=== PATIENT | female | born 1955 | race Two or more races ===

== ENCOUNTER 2017-12-29 11:50 | Inpatient (IN) | payer OTHER ==
[2017-12-29] MEDS ORDERED: Morphine VIAL* 10 MG/ML 1 ML VIAL IV ONE (18:53)
--- NOTE | 2017-12-29 18:53 | ED ---
Back Pain - HPI Summary HPI Summary: 62-year-old female presents with back pain for the past month. She dropped a bag a sugar on her back a couple months ago. She had a x-rays in [facility] and they were not significant for anything the family believes. She had CT done this week at her primary as she's been gradually not been able to walk and her primary told her to come here. She denies any saddle anesthesia. No loss of bowel or bladder. She's been using a walker to get around because of weakness in her left leg. She has pain in her left leg to the entire leg. She is diabetic. the son is translating. with discussion with family patient has been falling alot at home. she gets occasionally numbness of leg. - History of Current Complaint Chief Complaint: EDBackInjuryPain Time Seen by Provider: 12/29/17 18:44 Pain Intensity: 10 - Allergies/Home Medications Allergies/Adverse Reactions: Allergies Allergy/AdvReac Type Severity Reaction Status Date / Time No Known Allergies Allergy Verified 10/24/12 08:20 Home Medications: Home Medications Atorvastatin* [Lipitor*] 10 mg PO 1700 12/29/17 [History Confirmed 12/29/17] Insulin Detemir (NF) [Levemir (NF)] 68 unit SUBCUT BEDTIME 12/29/17 [History Confirmed 12/29/17] Insulin Detemir [Levemir Flextouch] 80 units SUBCUT QAM 12/29/17 [History Confirmed 12/29/17] Lisinopril TAB* [Prinivil TAB*] 5 mg PO DAILY 12/29/17 [History Confirmed ] traMADol TAB* [Ultram*] 50 mg PO Q8H PRN 12/29/17 [History Confirmed 12/29/17] PMH/Surg Hx/FS Hx/Imm Hx Endocrine/Hematology History: Reports: Hx Diabetes Denies: Hx Sickle Cell Disease Cardiovascular History: Denies: Other Cardiovascular Problems/Disorders Respiratory History: Denies: Other Respiratory Problems/Disorders GI History: Denies: Other GI Disorders History: Denies: Other Problems/Disorders Musculoskeletal History: Denies: Other Musculoskeletal History Sensory History: Reports: Hx Cataracts - LEFT EYE, Hx Contacts or Glasses - GLASSES Denies: Hx Hearing Aid Opthamlomology History: Reports: Hx Cataracts - LEFT EYE, Hx Contacts or Glasses - GLASSES Neurological History: Denies: Other Neuro Impairments/Disorders - Cancer History Hx Chemotherapy: No - Surgical History Hx Anesthesia Reactions: No Infectious Disease History: No Infectious Disease History: Denies: Traveled Outside the [place] in Last 30 Days - Family History Known Family History: Positive: Hypertension - Social History Substance Use Type: Reports: None Review of Systems Negative: Chest Pain Negative: Shortness Of Breath Positive: Myalgia - back pain, left leg pain All Other Systems Reviewed And Are Negative: Yes Physical Exam Triage Information Reviewed: Yes Vital Signs On Initial Exam: Initial Vitals Temp Pulse Resp BP Pulse Ox 97.8 F 71 16 158/77 96 12/29/17 12:25 12/29/17 12:25 12/29/17 12:25 12/29/17 12:25 12/29/17 12:25 Vital Signs Reviewed: Yes Appearance: Positive: Well-Appearing Skin: Positive: Warm, Dry Head/Face: Positive: Normal Head/Face Inspection Eyes: Positive: Normal, Conjunctiva Clear ENT: Positive: Pharynx normal Respiratory/Lung Sounds: Positive: Clear to Auscultation, Breath Sounds Present Cardiovascular: Positive: Normal, RRR Abdomen Description: Positive: Nontender, Soft Bowel Sounds: Positive: Present Musculoskeletal: Positive: Limited @ - back, Other - positive left leg, good pulses, Neurological: Positive: Normal, Babinski Left - normal Psychiatric: Positive: Normal Diagnostics - Vital Signs Vital Signs Temp Pulse Resp BP Pulse Ox 12/29/17 17:16 97.1 F 68 20 148/76 100 12/29/17 12:25 97.8 F 71 16 158/77 96 - Laboratory Result Diagrams: 12/29/17 19:23 12/29/17 19:25 Lab Statement: Any lab studies that have been ordered have been reviewed, and results considered in the medical decision making process. - Additional Comments Diagnostic Additional Comments: IMPRESSION: 1. Severe compression deformity of L1 with approximately 50% loss of height anteriorly. Retropulsion causes moderate canal narrowing with associated cord compression and central myelopathic cord signal abnormality, concerning for traumatic cord edema. 2. STIR hyperintensity inferiorly at T12 suggests acute fracture without significant loss of height. 3. Subtle STIR hyperintensity along the superior endplate of L2, which also could suggest acute fracture. Re-Evaluation - Re-Evaluation First Eval Re-Evaluation Time: :50 Comment: discussed results with patient and family Back Pain Course/Dx - Course Course Of Treatment: 62-year-old female presents with back pain for the past month. She dropped a bag a sugar on her back a couple months ago. She had a x- rays in [facility] and they were not significant for anything the family believes. She CT done this week at her primary as she's been gradually not been able to walk and her primary told her to come here. She denies any saddle anesthesia. No loss of bowel or bladder. She's been using a walker to get around because of weakness in her left leg. She has pain in her left leg to the entire leg. She is diabetic. the son is translating. on exam has tenderness lower back, pos SLR, babinski neg. CT shows compression fracture. dr maya will see in ED. discussed case with [employer]ATOR. CT shows compression fracture L1. MRI shows L1 fracture with associated cord compression. told results to dr maya who states to make patient npo and will discuss options with family. - Diagnoses Differential Diagnosis/HQI/PQRI: Positive: Fracture, Herniated Disc, Sprain Provider Diagnoses: Compression fracture of L1 lumbar vertebra Discharge - Sign-Out/Discharge Documenting (check all that apply): Patient Departure - Discharge Plan Condition: Stable Disposition: ADMITTED TO [facility] - Billing Disposition and Condition Condition: STABLE Disposition: Admitted to [facility]
[2017-12-29 19:34] LABS: ABS Basophils 0.1 10^3/ul (0-0.2); ABS Eosinophils 0.1 10^3/ul (0-0.6); ABS Lymphocytes 3.1 10^3/ul (1.0-4.8); ABS Monocytes 0.5 10^3/ul (0-0.8); ABS Neutrophils 4.8 10^3/ul (1.5-7.7); ABS Nucleated RBC 0 10^3/ul; Eosinophil % 0.9 % (0-6); Hematocrit 39 % (35-47); Hemoglobin 12.8 g/dl (12.0-16.0); Lymphocyte % 36.4 % (25-47); Mean Corpuscular HGB Conc 33 g/dl (31-36); Mean Corpuscular Hemoglobin 26 pg (27-31); Mean Corpuscular Volume 78 fL (80-97); Mean Platelet Volume 8.8 um3 (7.4-10.4); Nucleated Red Blood Cells % 0.2; Platelet Count 263 10^3/ul (150-450); Red Blood Count 4.95 10^6/ul (4.00-5.40); Red Cell Distribution Width 15 % (10.5-15); White Blood Count 8.5 10^3/ul (3.5-10.8)
[2017-12-29 19:51] LABS: EGFR Non-African American 110.1 (>60)
[2017-12-29] MEDS ORDERED: Ondansetron INJ* 2 MG/ML VIAL IV ONE (20:17)
[2017-12-29] MEDS ORDERED: Ondansetron INJ* 2 MG/ML VIAL ONE (20:18)
--- NOTE | 2017-12-29 20:35 | RAD ---
EXAM: CT Lumbar Spine Without Intravenous Contrast CLINICAL HISTORY: 62 years old, female; Pain; Hip pain; Right hip; Additional info: Right hip pain TECHNIQUE: Axial computed tomography images of the lumbar spine without intravenous contrast. All CT scans at this facility use at least one of these dose optimization techniques: automated exposure control; mA and/or kV adjustment per patient size (includes targeted exams where dose is matched to clinical indication); or iterative reconstruction. COMPARISON: No relevant prior studies available. FINDINGS: Vertebrae: Acute severe compression deformity of L1 with retropulsion causing approximately 30% osseous canal narrowing. There is approximately 50% loss of height of L1. Remaining lumbar vertebral body heights are intact. Multilevel facet arthropathy. No measurable spondylolisthesis. Discs/spinal canal/neural foramina: Disc height loss and desiccation at T12-L1 and L1-L2. Soft tissues: Unremarkable. In IMPRESSION: Acute severe compression deformity of L1 with 50% loss of height and retropulsion causing approximately 30% osseous canal narrowing.
--- NOTE | 2017-12-29 20:37 | RAD ---
EXAM: CT Pelvis Without Intravenous Contrast CLINICAL HISTORY: 62 years old, female; Pain; Low back pain; Patient HX: Trauma several months ago. 100 lb bag fell onto pt. TECHNIQUE: Axial computed tomography images of the pelvis without intravenous contrast. All CT scans at this facility use at least one of these dose optimization techniques: automated exposure control; mA and/or kV adjustment per patient size (includes targeted exams where dose is matched to clinical indication); or iterative reconstruction. COMPARISON: No relevant prior studies available. FINDINGS: Bowel: Unremarkable. No obstruction. No mucosal thickening. Intraperitoneal space: Unremarkable. No free air. No significant fluid collection. Bladder: Unremarkable. No stones. Reproductive: Unremarkable as visualized. Bones/joints: No acute fracture. No dislocation. Soft tissues: Unremarkable. Vasculature: Mild calcifications of the right iliac artery. No lower abdominal aortic aneurysm. Lymph nodes: Unremarkable. No enlarged lymph nodes. IMPRESSION: No acute findings.
[2017-12-29] MEDS ORDERED: Ondansetron INJ* 2 MG/ML VIAL IV PRN (22:07)
[2017-12-29] MEDS ORDERED: Dextrose 50% Syringe 50 ML* 25 GM/50 ML SYRINGE IV PUSH PRN (22:07)
[2017-12-29] MEDS ORDERED: Potassium Chlor TAB* 20 MEQ TAB.ER PO ONE (22:25)
--- NOTE | 2017-12-29 22:50 | RAD ---
EXAM: MR Lumbar Spine Without Intravenous Contrast CLINICAL HISTORY: 62 years old, female; Injury or trauma; Injury 100 lb bag of sugar fell on pt; Late effect from previous injury; Fracture, traumatic injury; Not specified; First lumbar vertebra; Injury date: September 2017; Patient HX: Continued low back pain and left leg weakness; Additional info: Compression fracture TECHNIQUE: Magnetic resonance images of the lumbar spine without intravenous contrast in multiple planes. COMPARISON: No relevant prior studies available. FINDINGS: STIR hyperintensity is present within the inferior plate of T12, compatible with acute fracture without significant loss of height. Redemonstration of severe compression deformity of L1 with approximately 50% loss of height anteriorly. There is also retropulsion with associated moderate canal narrowing. There is adjacent compression upon the spinal cord at L1 with myelopathic central cord signal abnormality. Very subtle STIR hyperintensity along the superior endplate of L2, which also could suggest subtle fracture. Remaining lumbar vertebral body heights are intact. Lumbar disc space heights are unremarkable. No cauda equina compression. Soft tissues are unremarkable. IMPRESSION: 1. Severe compression deformity of L1 with approximately 50% loss of height anteriorly. Retropulsion causes moderate canal narrowing with associated cord compression and central myelopathic cord signal abnormality, concerning for traumatic cord edema. 2. STIR hyperintensity inferiorly at T12 suggests acute fracture without significant loss of height. 3. Subtle STIR hyperintensity along the superior endplate of L2, which also could suggest acute fracture. THIS REPORT CONTAINS FINDINGS THAT MAY BE CRITICAL TO PATIENT CARE. The findings were verbally communicated via telephone conference with Dr. Amilcar Carbone at 10:48 PM EDT on 12/29/2017. The findings were acknowledged and understood.
[2017-12-30] MEDS ORDERED: NS 0.9% 1000 ML* 1,000 ML IV SCH (00:15)
--- NOTE | 2017-12-30 02:53 | HP ---
CC: Dr. Ch; Dr. Wang.* HISTORY AND PHYSICAL: DATE OF ADMISSION: 12/29/17 PRIMARY CARE PROVIDER: Dr. Ch. ATTENDING PHYSICIAN WHILE IN THE HOSPITAL: Irma William DO * (report dictated by Jayy Bolanos NP) CHIEF COMPLAINT: 1. Falls. 2. Left lower extremity numbness. HISTORY OF PRESENT ILLNESS: Mrs. Patten is a 62-year-old female patient. She has a history of diabetes, hyperlipidemia, and hypertension. She has a history of leukemia, and a history of CVA. According to the patient's son, Hungarian is the second language. She speaks Guinean only. She will speak some Hungarian and it is rather broken and most of the H and P is obtained from discussion with her son and also him acting as a recycling program manager. She states that in September, she had a bag of rice fell on her above 100 pounds and this was in [facility] and she fell , she landed on her sacral area. She sought care in [facility]. She was told to wear what the son calls a turtle shell and that hopefully function will return to her leg in 2 to 3 weeks, may take a month according to the son, that is what they were told. Unfortunately, the function in the leg never returned. She has been having trouble with foot drop. Son says that the foot has been dragging. She said that normally the left side is weak, but she can normally walk without falling and he has noticed that since she has been here since she came back from [facility] a couple of months ago she has had worsening falls. She has had progressive foot drop and she has had this right along since the injury according to the son and to the patient right along since the injury in September. She denied having any incontinence with bowel or bladder. She says that she has had numbness down the left leg compared to the right leg. There has been no trouble with speech. She does have a little bit of weakness in her left arm , but she says this sounds as if she had that since her stroke. She denied any recent fevers or chills. No vomiting or diarrhea or abdominal pain or any recent coughing. Because of the worsening weakness, imaging was obtained out patiently that showed an L1 compression fracture and she was referred to the ER. Here in the ER, we did confirm the L1 compression fracture with retropulsion to the spinal canal. Dr. Wang was consulted. We were asked to evaluate for admission. PAST MEDICAL HISTORY: Significant for: 1. Diabetes. 2. Hypertension. 3. Hyperlipidemia. 4. Leukemia. 5. CVA. PAST SURGICAL HISTORY: Denied. HOME MEDICATIONS: According to the pill bottles include: 1. Tramadol 50 mg every 8 hours as needed. 2. Lisinopril 5 mg a day. 3. Glipizide 5 mg p.o. b.i.d. 4. Lipitor 10 mg p.o. daily at 1700. According to Vanessa and we need to clarify this with her PCP, but she is on detemir 68 units at bedtime and 80 units subcu in the morning. ALLERGIES TO MEDICATIONS: Include no known drug allergies. FAMILY HISTORY: Unknown. SOCIAL HISTORY: She does not smoke and does not drink. Surrogate decision maker is her son. REVIEW OF SYSTEMS: There is no documented fever. She is denying having any significant weight change. There is no double vision. There is no ear discharge. There was no rhinorrhea. There is no sore throat. No thyroid enlargement. No chest pain. No orthopnea, no nocturnal dyspnea, no abdominal pain, no nausea, no vomiting, no dysuria, no frequency, no seizure, no loss of consciousness, no pruritus, and no skin ulceration. Review of 14 systems completed and all others negative. PHYSICAL EXAMINATION GENERAL: At this time, Mrs. Patten is a 62-year-old female patient. She is sitting in the ED stretcher. She does not appear to be in acute distress. She appears to be well nourished and well developed. VITAL SIGNS: Blood pressure 148/76, pulse 68, respirations are 20, O2 sat 100% , and temperature 97.1. HEENT: Head, atraumatic and normocephalic. Eyes: EOMs are intact. Sclerae anicteric and not pale. NECK: Supple. Throat, oral mucosa appears to be moist. No oropharyngeal erythema. LUNGS: Clear to auscultation. No wheezes, rales, or rhonchi. HEART: Sounds S1 and S2. She had a regular, rate, and rhythm. No murmurs, rubs, or gallops. ABDOMEN: Soft, flat, and nontender. Bowel sounds are present. EXTREMITIES: In her upper extremity, she had 4/5 strength in her left side and 5/5 strength in the right. On the upper extremities and lower extremities, she had pronounced left foot drop. She was unable to do plantar and dorsiflexion of that foot. She does have about 4 to 5 strength at the hip flexion and hip extension and at knee flexion and extension, she had 4/5 strength in the left side and on the right side, she had 5/5 strength in the lower extremity. RECTAL: She had a good rectal tone. SKIN: Intact. NEUROLOGIC: She is awake and alert. She is oriented x3. Her speech was clear. Tongue midline, grizzlyman again equal, they are a little bit diminished on the left. She had a significant foot drop on the left side, significant weakness on her lower extremity. She had numbness to the left front of her thigh going down the left lower pretibial area as well compared to the right. No other gross focal deficits. LABORATORY DATA: Revealed WBC of 8.5, RBC of 4.95, hemoglobin of 12.8, hematocrit of 39, and platelet count of 263. Sodium of 140, potassium 3.2, chloride of 105, bicarb 28, BUN 11, creatinine of 0.56, glucose 124, calcium 9.2 , total bili 0.6, AST 22, ALT 22, alk phos 104. CRP is 7.47, albumin of 3.8. CT pelvis. Impression: No acute findings. She has CT lumbar spine. Impression : Acute severe compression deformity at L1 with 50% loss of height and retropulsion causing approximately 30% osseous canal narrowing. Old medical records reviewed. ASSESSMENT AND PLAN: Mrs. Patten is a 62-year-old female patient coming into our ER today with complaints of worsening falls, left lower extremity weakness. On evaluation, was found to have L1 compression fracture with retropulsion to the central canal. Neurosurgery did evaluate the patient. We were asked to evaluate for admission. She will be admitted under observation status for: 1. L1 compression fracture. This appears to be happening probably back in September of this year with subsequently foot drop and neuro deficits. I did touch base with Dr. Wang. She had good rectal tone. There were no obvious signs of cauda equina. The patient will be admitted. Neurosurgery will evaluate for possible surgical options. She will be placed on bedrest. He recommended a TLSO brace. We will try to get the brace from home if possible. We will get her fitted for a new one here and then at that point, she can be out of bed, but should be on bedrest until we get that brace and until Neurosurgery do the evaluation tomorrow. She is getting an MRI of her lumbar spine tonight as well to further evaluate as some of these findings appear to be chronic now within the last 3 months and we will continue to follow. Once she is up, I will get PT and OT evaluations for the patient. 2. History of cerebrovascular accident. Continue with secondary prevention. I questioned aspirin use, but she is not on this at this point. We may consider adding this, but I am not going to add until we know the surgical planning for this patient given that we are talking about the spinal surgery. 3. Diabetes. We will switch her over to Lantus 60 b.i.d., lispro sliding scale , holding glipizide. We will clarify her insulin dosing tomorrow. 4. Hyperlipidemia. Continue statin therapy. 5. Hypertension. Continue meds as prescribed. 6. History of leukemia. I am going to get records from [place]. 7. DVT prophylaxis. She is high risk. I will place her on heparin subcu. 8. Code status. Full code. 9. Fluids, electrolytes, and nutrition. She can have a consistent carb diet. TIME SPENT ON ADMISSION: 60 minutes. Greater than half that time was spent face- to-face with the patient obtaining my history and physical, other half the time spent going over the plan of care with the patient, implementing the plan of care. I discussed the plan of care with my attending, Dr. William, she is in agreement. JAYY BOLANOS, OUSMANE [id number]/CPS #: [id number] ELICIA
--- NOTE | 2017-12-30 04:07 | CONS ---
CONSULTATION REPORT: DATE OF CONSULT: 12/29/17 HISTORY OF PRESENT ILLNESS: The patient is a very pleasant 62-year-old female with complaints of back pain for the last month. The patient was sent to the emergency room by her primary physician's office after being found to gradually not being able to walk and reported CT scan findings. The patient was reported to have sustained back injury in [facility] when she was reported to have sustained an injury by a dropped bag of sugar on her back 2 months ago. At that time, she had x-rays in [facility] that according to the family report, there were no significant findings. The patient at this point has difficulty walking with significant weakness in the left leg, with pain in the left leg and back pain. Requested to see the patient by emergency room team because of significant findings consistent with L1 burst fracture. The patient's primary language is Armenian and she speaks very simple Comoran, and history was obtained from the patient's chart. PAST MEDICAL HISTORY: None significant according to the patient's chart. PAST SURGICAL HISTORY: Negative. ALLERGIES: No known drug allergies. FAMILY HISTORY: Hypertension. SOCIAL HISTORY: Tobacco negative, alcohol negative, recreational drug use negative. PHYSICAL EXAM: The patient is awake and alert, responds appropriately. She is oriented to self. It is difficult to cooperate in exam because of language barrier. She has no tenderness to palpation of her thoracic and lumbar spine. She gets full range of motion in the cervical spine. Her pupils are equal and reactive. Cranial nerves II through XII are intact. Motor 4-5/5 in all extremities with the exception of the left lower extremity which is 3-4/5 with hip flexion and knee extension, 0/5 in left foot dorsiflexion, EHL, 2-3/5 in plantarflexion. On the right lower extremity, the patient has 4-/5 throughout. Sensory is grossly intact to light touch except decreased sensation on the left lower extremity below L2 distribution approximately. Position intact on the right lower extremity, absent in the left lower extremity. Deep tendon reflexes +1 except the left lower extremity, which is not elicited. No clonus, no Babinski. Acharya's negative. DIAGNOSTIC STUDIES/LAB DATA: The patient had a CT scan of the lumbar spine revealing a burst fracture of L1 with vacuum phenomenon. There is retropulsion of the posterior superior wall of the L1 vertebral body with approximately 30% canal compromise. There is also fracture through the right lamina of L1. ASSESSMENT: The patient is a pleasant 62-year-old female with progressive weakness of the left lower extremity and difficulty ambulating with CT scan findings consistent with L1 fracture. PLAN/RECOMMENDATIONS: The patient, at this point, will be admitted for pain control and further workup and imaging. The family is expected to come to the emergency room and provide us with further information about the patient's history. Recommend bedrest for now and plan for a brace and an MRI of her lumbar spine. The patient may be a candidate for surgical intervention for stabilization if the patient and family would be in agreement. Thank you for allowing us to participate in the care of this patient. Please do not hesitate to contact our office in case you have any further questions or concerns regarding the care of this patient. [id number]/CPS #: [id number] MTDD
[2017-12-30] MEDS: Heparin VIAL(*) 5000 UNITS/ML VIAL (FIVE THOUSAND) SUBCUT SCH ×3 (05:08→21:51)
[2017-12-30 08:28] LABS: ABS Basophils 0.1 10^3/ul (0-0.2); ABS Eosinophils 0.1 10^3/ul (0-0.6); ABS Monocytes 0.4 10^3/ul (0-0.8); ABS Neutrophils 3.7 10^3/ul (1.5-7.7); ABS Nucleated RBC 0 10^3/ul; Eosinophil % 1.3 % (0-6); Hematocrit 35 % (35-47); Hemoglobin 11.5 g/dl (12.0-16.0); Lymphocyte % 41.6 % (25-47); Mean Corpuscular HGB Conc 33 g/dl (31-36); Mean Corpuscular Hemoglobin 26 pg (27-31); Mean Corpuscular Volume 79 fL (80-97); Mean Platelet Volume 9.2 um3 (7.4-10.4); Nucleated Red Blood Cells % 0.1; Platelet Count 217 10^3/ul (150-450); Red Blood Count 4.48 10^6/ul (4.00-5.40); Red Cell Distribution Width 14 % (10.5-15); White Blood Count 7.2 10^3/ul (3.5-10.8)
[2017-12-30 08:35] LABS: EGFR Non-African American 105.7 (>60)
--- NOTE | 2017-12-30 08:52 | PN ---
Subjective Date of Service: 12/30/17 Interval History: Pt was seen with help of interpretation via application on internet. stste that pain is controlled with meds. Apparently the left leg was weaker even before the fall in 09/2017 when she was visiting [facility] for the Summer. Her foot got weaker after a fall. Her left hip was dislocated during the fall and was reduced in hospital in [facility]. The back and left leg pain had been getting worse since the fall. Pt denies any problems with FINE or CP, denies any cardiac problems in the past. In re: her leukemia-she was in remission in 2005 and had not seen her oncologist since Objective Active Medications: Acetaminophen (Tylenol Tab*) 650 mg PO Q4H PRN PRN Reason: FEVER/PAIN Atorvastatin Calcium (Lipitor*) 10 mg PO 1700 [facility]L Dextrose (D50w Syringe 50 Ml*) 12.5 gm IV PUSH .FOR FS < 60 - SS PRN PRN Reason: FS < 60 Heparin Sodium (Porcine) (Heparin Vial(*)) 5,000 units SUBCUT Q8HR [facility] Last Admin: 12/30/17 05:08 Dose: Not Given Insulin Glargine (Lantus(*)) 60 units SUBCUT Q12H SHERYL Insulin Human Lispro (Humalog*) 0 units SUBCUT AC SHERYL; Protocol Lisinopril (Prinivil Tab*) 5 mg PO DAILY SHERY[facility] Ondansetron HCl (Zofran Inj*) 4 mg IV Q6H PRN PRN Reason: NAUSEA Tramadol HCl (Ultram*) 50 mg PO Q8H PRN PRN Reason: PAIN Vital Signs - 8 hr 12/30/17 12/30/17 12/30/17 00:47 01:13 03:26 Temperature 97.9 F 98.1 F Pulse Rate 60 73 Respiratory 16 16 16 Rate Blood Pressure 138/65 114/58 (mmHg) O2 Sat by Pulse 97 100 Oximetry Oxygen Devices in Use Now: None Appearance: 62 yo F with poor [place] knowledge AAOx3, in nAD Eyes: No Scleral Icterus, PERRLA Ears/Nose/Mouth/Throat: NL Teeth, Lips, Gums, Mucous Membranes Moist Neck: NL Appearance and Movements; NL JVP, Trachea Midline Respiratory: Symmetrical Chest Expansion and Respiratory Effort, Clear to Auscultation Cardiovascular: NL Sounds; No Murmurs; No JVD, RRR, No Edema Abdominal: NL Sounds; No Tenderness; No Distention, No Hepatosplenomegaly Lymphatic: No Cervical Adenopathy Extremities: No Edema, No Clubbing, Cyanosis Skin: No Rash or Ulcers, No Nodules or Sclerosis Neurological: Alert and Oriented x 3, - - left leg weaker at 4/5, left foot drop noted, no other focal neuro deficit evident on exam Result Diagrams: 12/30/17 07:19 12/30/17 07:18 Assess/Plan/Problems-Billing Assessment: 62 yo F with h/o HRN, Acute promyelocytic leukemia dx in 2000 (pt at that 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 Wang pt will be on bedrest. Will order TLSO brace. She will likely need surgery in the next 1-3 days Getting Echo to eval EF for preop clearance (2) DM2 (diabetes mellitus, type 2) Comment: oral meds held, cont Lantus and ISS (3) Leukemia in remission Comment: As d/w DR. Aparicio, pt had been in remission for >10 years and her CBC does not indicate any recurrence. Due to h/o CVA/[place] when in [facility]IC in the acute stage of the disease in 2000,will btain Echo to eval EF preop (4) HTN (hypertension) Comment: controlled, cont lisinopril (5) DVT prophylaxis Comment: HSQ Status and Disposition: inpatient
--- NOTE | 2017-12-30 09:30 | RAD ---
HISTORY: h/o fall, r/o fx COMPARISONS: None TECHNIQUE: Multiple contiguous axial CT scans were obtained of the cervical spine without intravenous contrast, with coronal and sagittal multiplanar reformations. FINDINGS: BRAIN: The visualized brain is unremarkable CENTRAL CANAL: Evaluation of the central canal is limited on CT technique, however there is no obvious canalicular mass or epidural hemorrhage. ALIGNMENT: The alignment is normal, without subluxation or dislocation. VERTEBRAL BODIES: There is no displaced fracture. There is mild anterolateral marginal osteophyte formation C5-C6. JOINTS: There is no subluxation or dislocation. MUSCULATURE: Unremarkable INTERVERTEBRAL DISCS: There is diffuse loss of intervertebral disc height. AXIAL IMAGES: On axial images, there is no osseous neural foraminal narrowing or central canal stenosis. SOFT TISSUES: The visualized soft tissues of the neck are unremarkable. The prevertebral fat stripe is preserved. OTHER: None. IMPRESSION: MILD DEGENERATIVE CHANGES. NO ACUTE OSSEOUS INJURY TO THE CERVICAL SPINE.
[2017-12-30] MEDS: Lisinopril TAB* 5 MG PO SCH (10:08)
[2017-12-30] MEDS: Insulin GLARGINE(*) 1 UNITS UNIT SUBCUT SCH ×2 (10:08→21:52)
[2017-12-30] MEDS: Insulin LISPRO* 1 UNITS UNIT SUBCUT SCH ×3 (10:10→17:21)
--- NOTE | 2017-12-30 10:13 | RAD ---
HISTORY: f/u L1 fx COMPARISONS: CT dated December 29, 2017 VIEWS: 2 , Frontal and lateral views of the lumbar spine FINDINGS: There is transitional last lumbar type vertebral body which will be labeled L5 for the purposes of counting. ALIGNMENT: There is straightening of the normal lumbar lordosis. VERTEBRAL BODIES: There is partial lumbarization of S1 vertebral body. Again noted is a compression deformity of L1 with osseous retropulsion similar to the previous examination. There is mild anterolateral marginal osteophyte formation. JOINTS: The facet joints are normal. INTERVERTEBRAL DISCS: There is diffuse loss of intervertebral disc height. SOFT TISSUE: Unremarkable. OTHER: The pelvis is unremarkable. The lung bases are clear. IMPRESSION: STABLE COMPRESSION DEFORMITY OF L1 WITH OSSEOUS RETROPULSION.
--- NOTE | 2017-12-30 10:14 | RAD ---
HISTORY: r/o fx COMPARISONS: CT dated December 29, 2017. VIEWS: 2, Frontal and lateral views of the thoracic spine. FINDINGS: ALIGNMENT: The alignment is normal. VERTEBRAL BODIES: There is mild anterolateral marginal osteophyte formation. Again noted is compression deformity of L1 not well seen on the lateral projection. JOINTS: Unremarkable. INTERVERTEBRAL DISCS: There is diffuse loss of intervertebral disc height. SOFT TISSUE: Unremarkable OTHER: The visualized lungs are clear. IMPRESSION: MILD DEGENERATIVE CHANGES. COMPRESSION DEFORMITY OF L1. PLEASE REFER TO THE REPORT OF THE LUMBAR SPINE PERFORMED ON THE SAME DATE.
--- NOTE | 2017-12-30 14:15 | ECHO ---
Patient: KIMANI ODEN [facility] Rec#: [id number] : 1955 Date: 12/30/2017 Age: 62y Height: 157 cm / 61.8 in Weight: 63.5 kg / 140.0 lbs Sex: F BSA: 1.6 Room#: 331 Admit Date#: 12/29/2017 Type: Inpatient Referring: Linsey Torres MD Reading: Jean Gonzalez MD Health Occupations Teacher: Birgit Driscoll RN RDCS Transthoracic Echocardiogram Indication: Cardiomyopathy BP: 136/58 HR: 64 Rhythm: NSR Findings History: DM, HTN, HLD, CVA, leukemia, anticipating possible back surgery Technical Comments: The study quality is fair. Completed at 1235. Left Ventricle: The left ventricular chamber size is normal. There is increased basal septal hypertrophy noted without evidence of an increased gradient across the left ventricular outflow tract. There is a focal wall motion abnormality present. There is mild to moderately decreased left ventricular systolic function. The estimated ejection fraction is 40-45%. closer to 40%. Apical false tendon. There is an E to A reversal in the mitral valve flow pattern suggestive of diastolic dysfunction. The basal anterolateral, mid anterolateral, and apical lateral wall segments are hypokinetic (score 2). The mid inferolateral, mid inferior, and apical inferior wall segments are akinetic (score 3). Overall wallmotion score index is 1.56 Left Atrium: The left atrial chamber size is normal. Right Ventricle: The right ventricular cavity size is normal. The right ventricular global systolic function is mildly reduced. Right Atrium: The right atrial cavity size is normal. Aortic Valve: The aortic valve is trileaflet. The aortic valve leaflets are mildly thickened. There is trace to mild aortic regurgitation. There is no evidence of aortic stenosis. Mitral Valve: The mitral valve leaflets are mildly thickened. There is mild mitral regurgitation. There is no evidence of mitral stenosis. Tricuspid Valve: The tricuspid valve structure is not well visualized. There is trace to mild tricuspid regurgitation. Unable to estimate the right ventricular systolic pressure. There is no tricuspid stenosis. Pulmonic Valve: The pulmonic valve appears normal. There is a trace pulmonic regurgitation. There is no pulmonic stenosis. Pericardium: There is no significant pericardial effusion. Aorta: There is mild dilatation of the ascending aorta. There is no dilatation of the aortic arch. There is no dilation of the aortic root. Pulmonary Artery: The main pulmonary artery appears normal. Venous: The inferior vena cava appears normal in size. There is a greater than 50% respiratory change in the inferior vena cava dimension. Conclusions There is increased basal septal hypertrophy noted without evidence of an increased gradient across the left ventricular outflow tract. There is a focal wall motion abnormality present. There is mild to moderately decreased left ventricular systolic function. The estimated ejection fraction is 40-45%. closer to 40%. There is an E to A reversal in the mitral valve flow pattern suggestive of diastolic dysfunction. The left atrial chamber size is normal. The right ventricular global systolic function is mildly reduced. The aortic valve leaflets are mildly thickened. There is trace to mild aortic regurgitation. There is mild mitral regurgitation. There is trace to mild tricuspid regurgitation. There is mild dilatation of the ascending aorta. Similar to the prior study of except for a mild increase in EF from 35% then to 40-45% now. Similar posterior wall motion abnormality described last time. Measurements Name Value Normal Range RVDdMajor (2D) 2.2 cm (2.2 - 4.4) RAd ISD 4CH 4.3 cm (3.4 - 4.9) RA (A4C)W 2.9 cm (2.9 - 4.6) IVSd (2D) 1.2 cm (0.6 - 1) LVPWd (2D) 0.7 cm (0.6 - 1) LVIDd (2D) 4.1 cm (3.6 - 5.4) LVIDs (2D) 3.3 cm - LV FS (2D) 20 % (25 - 45) Aortic Annulus 2 cm (1.4 - 2.6) Ao root diameter (2D) 3.5 cm (2.1 - 3.5) Ascending Ao 3.6 cm (2.1 - 3.4) Aortic arch 2.3 cm (1.8 - 3.4) LA dimension (AP) 2D 3.2 cm (2.3 - 3.8) LAd ISD 4CH 4.2 cm (2.9 - 5.3) LA ISD 4CH W 3.4 cm (2.5 - 4.5) Name Value Normal Range LA ESV BP (A/L) index 21.7 ml/m2 - Name Value Normal Range MV E-wave Vmax 0.56 m/sec - MV deceleration time 257 msec - MV A-wave Vmax 1.1 m/sec - MV E:A ratio 0.5 ratio - LV septal e' Vmax 0.04 m/sec - LV lateral e' Vmax 0.05 m/sec - LV E:e' septal ratio 14 ratio - LV E:e' lateral ratio 11.2 ratio - Name Value Normal Range AV Vmax 1.4 m/sec - AV VTI 31.8 cm - AV peak gradient 7 mmHg - AV mean gradient 4 mmHg - LVOT Vmax 1 m/sec - LVOT VTI 22.8 cm - LVOT peak gradient 4 mmHg - LVOT mean gradient 2 mmHg - AR PHT 482 msec - MARCY Vmax 0.91 m/sec - Name Value Normal Range IVC diameter 1.4 cm - Name Value Normal Range PV Vmax 0.8 m/sec - Wallmotion BAS Normal BA Normal BAL Hypokinetic YVAN Normal BI Normal BIS Normal MAS Normal MA Normal MAL Hypokinetic MIL Akinetic UT Akinetic MIS Normal Normal AA Normal AL Hypokinetic AI Akinetic APEX Hypokinetic
[2017-12-30] MEDS: Atorvastatin* 10 MG TAB PO SCH (17:21)
--- NOTE | 2017-12-30 22:34 | PN ---
Progress Note - Progress Note Date of Service: 12/30/17 SOAP: Subjective: []No events ON. Patient resting comfortably. Bedside echo. Patient was evaluated in presence and assistance of her daughter in law. Objective: []AAO, MADAN, CN II -XII grossly intact. Motor 4-5/5 except RLE 4-/5, LLE HF, KE 3/4, FDF, EHL 0/5, PF 3/5 Sensory grossly intact to light touch except decreased bellow Lt L2 Assessment: []62 yof L1 burst fracture Plan: []Monitor VS, Neurochecks MRI revealed increased signal in STIR imaging in L1 vertebral body, possible T12 and L2 endplates. CT cervical spine did not reveal any fractures, No other fractures in XR of T spine. Discussed in extend with patient's son over the phone and daughter in law: Patient had a CVA several years ago treated in [facility] with residual mild Left hemiparesis. Patient was reported to sustain an L1 burst fracture 2 months ago in [facility] treated conservatively with bed rest. I reviewed limited imaging from CT of lumbar spine from that time. CT revealed L1 burst fracture with similar canal compromise and no significant loss of vertebral height. Patient is reported to have noticed Left lower extremity weakness with dragging her left foot and difficulty ambulating when tried to ambulate one month ago. No changes noticed in her neurological function since then, per family. Discussed treatment options including surgical intervention for stabilization with limitations, expectations and possible complications of the procedure, including bleeding, infection,risk of injury to adjacent structures, coma, paralysis, , need for additional procedure, adjacent level disease, pseudoarthrosis, proximal or distal junctional kyphosis with patient, patient's son and daughter in law. Daughter in law assisted with interpretation. At this point family and patient are agreeable with surgical intervention with the understanding that her condition may not improve and may get worse after surgery and that she may have additional procedures in the future, including and anterior approach for possible corpectomy. We will discuss with patient and family again and plan for surgical intervention if patient will be able to be medically able to tolerate the procedure. Appreciate care. Reese Wang MD
[2017-12-31] MEDS: Heparin VIAL(*) 5000 UNITS/ML VIAL (FIVE THOUSAND) SUBCUT SCH ×3 (07:05→22:23)
[2017-12-31] MEDS: Insulin LISPRO* 1 UNITS UNIT SUBCUT SCH ×3 (08:26→17:25)
[2017-12-31] MEDS: Lisinopril TAB* 5 MG PO SCH (09:46)
[2017-12-31] MEDS: Insulin GLARGINE(*) 1 UNITS UNIT SUBCUT SCH (09:47)
[2017-12-31] MEDS ORDERED: Insulin GLARGINE(*) 1 UNITS UNIT SUBCUT ONE ×2 (11:33→18:00)
--- NOTE | 2017-12-31 12:33 | PN ---
Progress Note - Progress Note Date of Service: 12/31/17 SOAP: Subjective: []No events ON. Patient resting comfortably. Patient examined with the assistance of remote interpretation services through iPad device. Patient confirmed history of L1 fracture two months ago, treated conservatively. She reported that had Lt side weakness prior to the injury, but she noticed that had significantly increased weakness of her LLE after the injury and that she was not able to ambulate since then. It is not clear if the weakness is progressive, but according to the patient she reported it to be stable. Patient reports that she have episodes of urinary incontinence after the injury, but denies any recent episodes of incontinence. Objective: [] AAO, MADAN, CN II -XII grossly intact. Motor 4-5/5 except RLE 4-/5, LLE HF, KE 3/4, FDF, EHL 0/5, PF 3/5 Sensory grossly intact to light touch except decreased bellow Lt L2 Assessment: []62 yof L1 burst fracture Plan: [] Monitor VS, Neurochecks. DVT prophylaxis including TEDS, SCDs. Discussed in extend with patient regarding treatment options including surgical intervention for stabilization with limitations, expectations and possible complications of the procedure, including risk of bleeding, infection, risk of injury to adjacent structures, coma, paralysis, , need for additional procedure, adjacent level disease, pseudoarthrosis, proximal or distal junctional kyphosis need for additional procedures, inability to improve, loss of bladder and bowel control, need for prolonged ICU care, anesthesia risks. Patient understood that her condition may not improve and in fact may get worse after the surgery and that she may have additional procedures in the future, including and anterior approach for possible corpectomy. She understood that operative plan may be modified according to intraoperative findings and conditions and that the procedure may be abandoned or performed in more than one stages. At this point patient is agreeable with surgical intervention. Will plan for surgical intervention if patient will be able to be medically able to tolerate the procedure. Appreciate IM care. Reese Wang MD
--- NOTE | 2017-12-31 15:38 | PN ---
Subjective Date of Service: 12/31/17 Interval History: Pt agreed to surgery with Dr. Wang that should happen sometime next week. She stated that due the weakness in Left leg she really has not walked x 2 months. denies CP of SOB at baseline and denies any heart problems,although for medical records is known that she suffered from AMI when in [facility]IC/leukemia in 2000 Objective Active Medications: Acetaminophen (Tylenol Tab*) 650 mg PO Q4H PRN PRN Reason: FEVER/PAIN Atorvastatin Calcium (Lipitor*) 10 mg PO 1700 [facility] Last Admin: 12/30/17 17:21 Dose: 10 mg Dextrose (D50w Syringe 50 Ml*) 12.5 gm IV PUSH .FOR FS < 60 - SS PRN PRN Reason: FS < 60 Heparin Sodium (Porcine) (Heparin Vial(*)) 5,000 units SUBCUT Q8HR [facility] Last Admin: 12/31/17 14:26 Dose: 5,000 units Insulin Glargine (Lantus(*)) 30 units SUBCUT Q12H SHERYL Insulin Human Lispro (Humalog*) 0 units SUBCUT AC SHERYL; Protocol Last Admin: 12/31/17 11:39 Dose: Not Given Lisinopril (Prinivil Tab*) 5 mg PO DAILY [facility] Last Admin: 12/31/17 09:46 Dose: 5 mg Ondansetron HCl (Zofran Inj*) 4 mg IV Q6H PRN PRN Reason: NAUSEA Tramadol HCl (Ultram*) 50 mg PO Q8H PRN PRN Reason: PAIN Vital Signs - 8 hr 12/31/17 12/31/17 12/31/17 08:00 11:38 11:40 Temperature 97.9 F Pulse Rate 62 62 Respiratory 16 16 Rate Blood Pressure 142/62 (mmHg) O2 Sat by Pulse 100 98 Oximetry Oxygen Devices in Use Now: None Appearance: 62 yo F in nAD, aAOx3 Eyes: No Scleral Icterus, PERRLA Ears/Nose/Mouth/Throat: NL Teeth, Lips, Gums, Mucous Membranes Moist Neck: NL Appearance and Movements; NL JVP, Trachea Midline Respiratory: Symmetrical Chest Expansion and Respiratory Effort Cardiovascular: NL Sounds; No Murmurs; No JVD, RRR Abdominal: NL Sounds; No Tenderness; No Distention Lymphatic: No Cervical Adenopathy Extremities: No Edema, No Clubbing, Cyanosis Skin: No Rash or Ulcers, No Nodules or Sclerosis Neurological: Alert and Oriented x 3, - - left foot drop, L LE at 4/5 Result Diagrams: 12/30/17 07:19 12/30/17 07:18 Assess/Plan/Problems-Billing Assessment: 62 yo F with h/o HRN, Acute promyelocytic leukemia dx in 2000 (pt at that 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 Wang pt will be on bedrest. W She will likely undergo surgery in the next 2-3 days Pt has h/o IA and CVA in 2000 due to DIC and leukemia. Her Echo shows EF 40-45% (better than in 2000) and smiliar wall mtion abn as before. She has had no symptoms of CP/SOB. According to RCRI calculator-she is at 11% risk of major cardiac event and according to ACS preop risk calc.she is at 5.8 % of serious complication. At this point she is opitmized for the anticipated surgery and the only modifiable factor is starting pt on beta riri. I'll hold lisinopril and start lopressor. (2) DM2 (diabetes mellitus, type 2) Comment: oral meds held. due to low PO intake (likley related to stress) will lower Lantus further. cont ISS (3) Leukemia in remission Comment: As d/w DR. Aparicio, pt had been in remission for >10 years and her CBC does not indicate any recurrence. Pt has h/o CVA/[place] when in [facility] in the acute stage of the disease in 2000, (4) HTN (hypertension) Comment: controlled (5) DVT prophylaxis Comment: HSQ Status and Disposition: inpatient
--- NOTE | 2017-12-31 16:10 | RAD ---
INDICATION: History of fall COMPARISON: None. TECHNIQUE: Contiguous axial sections of the brain were obtained from the skull base to the vertex without contrast. FINDINGS: There is slight enlargement of the anterior horn of the right ventricle suspected to be due to volume loss at the subcortical white matter tracts of the right frontal lobe. Otherwise the ventricles, cisterns and sulci are within normal limits. At the subcortical white matter of the right frontal lobe there is hypoattenuation as well as coarse calcification. Elsewhere the ortiz-white matter differentiation is adequately maintained. There is no mass, mass effect or midline shift. There is no evidence of acute intracranial hemorrhage. No significant focal osseous abnormality is present. The visualized portion of the paranasal sinuses appear clear. The mastoid air cells are well aerated bilaterally. IMPRESSION: 1. There is encephalomalacia with what appears to be calcification involving the subcortical white matter of the right frontal lobe. Although there are no prior CTs of the brain for comparison, this finding has a chronic appearance. Please correlate with details of the patient's medical and/or surgical history. 2. No CT evidence of acute or subacute intracranial hemorrhage.
[2017-12-31] MEDS: Atorvastatin* 10 MG TAB PO SCH (17:24)
[2017-12-31] MEDS ORDERED: Insulin GLARGINE(*) 1 UNITS UNIT SUBCUT SCH (18:00)
[2017-12-31] MEDS: Metoprolol Tartrate TAB* 25 MG PO SCH (22:22)
[2018-01-01] MEDS: Heparin VIAL(*) 5000 UNITS/ML VIAL (FIVE THOUSAND) SUBCUT SCH ×3 (06:16→21:33)
[2018-01-01 06:36] LABS: ABS Basophils 0.1 10^3/ul (0-0.2); ABS Eosinophils 0.1 10^3/ul (0-0.6); ABS Lymphocytes 3.1 10^3/ul (1.0-4.8); ABS Monocytes 0.4 10^3/ul (0-0.8); ABS Neutrophils 3.5 10^3/ul (1.5-7.7); ABS Nucleated RBC 0 10^3/ul; Eosinophil % 1.2 % (0-6); Hematocrit 38 % (35-47); Hemoglobin 12.5 g/dl (12.0-16.0); Lymphocyte % 43.2 % (25-47); Mean Corpuscular HGB Conc 33 g/dl (31-36); Mean Corpuscular Hemoglobin 26 pg (27-31); Mean Corpuscular Volume 78 fL (80-97); Mean Platelet Volume 8.8 um3 (7.4-10.4); Nucleated Red Blood Cells % 0.2; Platelet Count 228 10^3/ul (150-450); Red Blood Count 4.89 10^6/ul (4.00-5.40); Red Cell Distribution Width 15 % (10.5-15); White Blood Count 7.1 10^3/ul (3.5-10.8)
[2018-01-01 06:55] LABS: EGFR Non-African American 103.6 (>60)
[2018-01-01] MEDS: Insulin LISPRO* 1 UNITS UNIT SUBCUT SCH ×3 (07:49→17:19)
--- NOTE | 2018-01-01 08:52 | PN ---
Subjective Date of Service: 01/01/18 Interval History: pt c/o left leg numb last night transiently. Feels well today. Anxious to know the date of surgery Objective Active Medications: Acetaminophen (Tylenol Tab*) 650 mg PO Q4H PRN PRN Reason: FEVER/PAIN Atorvastatin Calcium (Lipitor*) 10 mg PO 1700 [facility]ERYL Last Admin: 12/31/17 17:24 Dose: 10 mg Dextrose (D50w Syringe 50 Ml*) 12.5 gm IV PUSH .FOR FS < 60 - SS PRN PRN Reason: FS < 60 Heparin Sodium (Porcine) (Heparin Vial(*)) 5,000 units SUBCUT Q8HR [facility] Last Admin: 01/01/18 06:16 Dose: 5,000 units Insulin Human Lispro (Humalog*) 0 units SUBCUT AC [facility]; Protocol Last Admin: 01/01/18 07:49 Dose: Not Given Metoprolol Tartrate (Lopressor Tab*) 12.5 mg PO Q12HR [facility] Last Admin: 12/31/17 22:22 Dose: 12.5 mg Ondansetron HCl (Zofran Inj*) 4 mg IV Q6H PRN PRN Reason: NAUSEA Tramadol HCl (Ultram*) 50 mg PO Q8H PRN PRN Reason: PAIN Vital Signs - 8 hr 01/01/18 01/01/18 01/01/18 03:22 07:05 07:19 Temperature 98.2 F 97.7 F Pulse Rate 61 55 Respiratory 16 16 16 Rate Blood Pressure 110/66 146/67 (mmHg) O2 Sat by Pulse 100 100 Oximetry Oxygen Devices in Use Now: None Appearance: 62 yo F in nAD, aAOx3 Eyes: No Scleral Icterus, PERRLA Ears/Nose/Mouth/Throat: NL Teeth, Lips, Gums, Mucous Membranes Moist Neck: NL Appearance and Movements; NL JVP, Trachea Midline Respiratory: Symmetrical Chest Expansion and Respiratory Effort, Clear to Auscultation Cardiovascular: NL Sounds; No Murmurs; No JVD, RRR Abdominal: NL Sounds; No Tenderness; No Distention Lymphatic: No Cervical Adenopathy Extremities: No Edema, No Clubbing, Cyanosis Skin: No Rash or Ulcers, No Nodules or Sclerosis Neurological: Alert and Oriented x 3, - - left leg weakness and left foot drop unchanged Result Diagrams: 01/01/18 06:12 01/01/18 06:12 Assess/Plan/Problems-Billing Assessment: 62 yo F with h/o HRN, Acute promyelocytic leukemia dx in 2000 (pt at that 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 Wang pt will be on bedrest. She is planned undergo surgery next week Pt has h/o SD and CVA in 2000 due to DIC and leukemia. Her Echo shows EF 40-45% (better than in 2001) and smiliar wall motion abn as before. She has had no symptoms of CP/SOB. According to RCRI calculator-she is at 11% risk of major cardiac event and according to ACS preop risk calc.she is at 5.8 % of serious complication. At this point she is opitmized for the anticipated surgery and the only modifiable factor is starting pt on beta riri. Lisinopril was held and lopressor was started on 12/31/17. (2) DM2 (diabetes mellitus, type 2) Comment: oral meds held. due to low PO intake (likley related to stress) . cont lower dose of Lantus cont ISS (3) Leukemia in remission Comment: As d/w DR. Aparicio, pt had been in remission for >10 years and her CBC does not indicate any recurrence. Pt has h/o CVA/SD when in [facility]IC in the acute stage of the disease in 2000 (4) HTN (hypertension) Comment: controlled (5) DVT prophylaxis Comment: HSQ Status and Disposition: inpatient
[2018-01-01] MEDS: Metoprolol Tartrate TAB* 25 MG PO SCH ×2 (09:06→19:28)
--- NOTE | 2018-01-01 12:06 | PN ---
Progress Note - Progress Note Date of Service: 01/01/18 SOAP: Subjective: []No events ON. Patient resting comfortably. Objective: []AAO, MADAN, CN II -XII grossly intact. Motor 4-5/5 except RLE 4-/5, LLE HF, KE 3/4, FDF, EHL 0/5, PF 3/5. Mild LUE pronator drift (has hx of remote CVA with residual left side weakness) Sensory grossly intact to light touch except decreased bellow Lt L2 Assessment: []62 yof L1 burst fracture Plan: [] Monitor VS, Neurochecks. Bed rest. DVT prophylaxis. Plan for surgical intervention on Tuesday. Appreciate IM care. Reese Wang MD
[2018-01-01] MEDS: Atorvastatin* 10 MG TAB PO SCH (17:20)
[2018-01-02] MEDS: Heparin VIAL(*) 5000 UNITS/ML VIAL (FIVE THOUSAND) SUBCUT SCH ×3 (06:03→21:46)
[2018-01-02] MEDS: Metoprolol Tartrate TAB* 25 MG PO SCH ×2 (08:43→20:20)
[2018-01-02] MEDS: Insulin LISPRO* 1 UNITS UNIT SUBCUT SCH ×3 (08:43→17:59)
--- NOTE | 2018-01-02 09:00 | PN ---
Subjective Date of Service: 01/02/18 Interval History: Pt feels well. still left leg is weak. Plans for OR on Tuesday Objective Active Medications: Acetaminophen (Tylenol Tab*) 650 mg PO Q4H PRN PRN Reason: FEVER/PAIN Atorvastatin Calcium (Lipitor*) 10 mg PO 1700 [facility] Last Admin: 01/01/18 17:20 Dose: 10 mg Dextrose (D50w Syringe 50 Ml*) 12.5 gm IV PUSH .FOR FS < 60 - SS PRN PRN Reason: FS < 60 Heparin Sodium (Porcine) (Heparin Vial(*)) 5,000 units SUBCUT Q8HR [facility] Last Admin: 01/02/18 06:03 Dose: 5,000 units Insulin Human Lispro (Humalog*) 0 units SUBCUT [facility]; Protocol Last Admin: 01/02/18 08:43 Dose: 2 units Metoprolol Tartrate (Lopressor Tab*) 12.5 mg PO Q12HR [facility] Last Admin: 01/02/18 08:43 Dose: 12.5 mg Ondansetron HCl (Zofran Inj*) 4 mg IV Q6H PRN PRN Reason: NAUSEA Tramadol HCl (Ultram*) 50 mg PO Q8H PRN PRN Reason: PAIN Vital Signs - 8 hr 01/02/18 01/02/18 03:16 07:26 Temperature 98.4 F 97.2 F Pulse Rate 60 60 Respiratory 16 16 Rate Blood Pressure 121/71 148/67 (mmHg) O2 Sat by Pulse 100 99 Oximetry Oxygen Devices in Use Now: None Appearance: 62 yo F in nAD, aAOx3, speaks little Vietnamese Eyes: No Scleral Icterus, PERRLA Ears/Nose/Mouth/Throat: NL Teeth, Lips, Gums, Mucous Membranes Moist Neck: NL Appearance and Movements; NL JVP, Trachea Midline Respiratory: Symmetrical Chest Expansion and Respiratory Effort, Clear to Auscultation Cardiovascular: NL Sounds; No Murmurs; No JVD Abdominal: NL Sounds; No Tenderness; No Distention, No Hepatosplenomegaly Lymphatic: No Cervical Adenopathy Extremities: No Edema, No Clubbing, Cyanosis Skin: No Rash or Ulcers, No Nodules or Sclerosis Neurological: Alert and Oriented x 3, - - left foot drop, L LE 4/5 Result Diagrams: 01/01/18 06:12 01/01/18 06:12 Assess/Plan/Problems-Billing Assessment: 62 yo F with h/o HRN, Acute promyelocytic leukemia dx in 2000 (pt at that 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 Wang pt will be on bedrest. She is planned undergo surgery tomorrow. Pt has h/o WA and CVA in 2000 due to D[facility] and leukemia. Her Echo shows EF 40-45% (better than in 2001) and smiliar wall motion abn as before. She has had no symptoms of CP/SOB. According to RCRI calculator-she is at 11% risk of major cardiac event and according to ACS preop risk calc.she is at 5.8 % of serious complication. At this point she is opitmized for the anticipated surgery and the only modifiable factor is starting pt on beta riri. Lisinopril was held and lopressor was started on 12/31/17. (2) DM2 (diabetes mellitus, type 2) Comment: oral meds held. due to low PO intake (likley related to stress) . Lantus held pre op (3) Leukemia in remission Comment: As d/w DR. Aparicio, pt had been in remission for >10 years and her CBC does not indicate any recurrence. Pt has h/o CVA/WA when in [facility] in the acute stage of the disease in 2000 (4) HTN (hypertension) Comment: controlled (5) DVT prophylaxis Comment: HSQ, last dose tonight prior to surgery then hold Status and Disposition: inpatient
[2018-01-02] MEDS: traMADol TAB* 50 MG PO PRN (14:24)
[2018-01-02] MEDS: Atorvastatin* 10 MG TAB PO SCH (17:59)
--- NOTE | 2018-01-02 19:12 | PN ---
Progress Note - Progress Note Date of Service: 01/02/18 SOAP: Subjective: [] No events ON. Patient resting comfortably. Patient was seen earlier in am and this pm. Family, including her son who is her main caregiver at bedside. Objective: []AAO, MADAN, CN II -XII grossly intact. Motor 4-5/5 except RLE 4-/5, LLE HF, KE 3/4, FDF, EHL 0/5, PF 3/5 Sensory grossly intact to light touch except decreased bellow Lt L2 Assessment: []]62 yof L1 burst fracture with canal compromise. Plan: []Monitor VS, Neurochecks. DVT prophylaxis Discussed in extend with patient and patient's family including her son. Patient's discussion was done with the assistance of remote interpretation services through iPad device. Patient and her family understood treatment options including surgical intervention for stabilization with thoracolumbar istrumentation, arthrodesis, decompression and possible corpectomy. Explained in extend limitations, expectations and possible complications of the procedure including but not limited to risk of bleeding, infection, risk of injury to adjacent structures, coma, paralysis, , need for additional procedures, adjacent level disease, pseudoarthrosis, proximal or distal junctional kyphosis, spinal fluid leak, inability to improve, loss of bladder and bowel control, need for prolonged ICU care, anesthesia risks. Patient understood that her condition may not improve and in fact may get worse after the surgery and that she may have additional procedures in the future, including an anterior approach for possible corpectomy. She understood that operative plan may be modified according to intraoperative findings and conditions and that the procedure may be abandoned or performed in more than one stages. At this point patient and her family are agreeable with surgical intervention and informed consent was obtained. Reese Wang MD
[2018-01-02] MEDS ORDERED: NS 0.9% 1000 ML* 1,000 ML IV SCH (23:55)
[2018-01-03 06:31] LABS: EGFR Non-African American 99.7 (>60)
[2018-01-03] MEDS ORDERED: Buffered Lidocaine 0.9% SYRIN* 5 ML/SYR SYRINGE INTRADERM ONE (08:27)
[2018-01-03] MEDS ORDERED: Lidocain 1% EPI 1:100,000 * 30 ML MDV ONE (08:33)
[2018-01-03] MEDS ORDERED: Thrombin 5,000 UNITS* 1 APPLIC KIT - topical use - TOPICAL ONE (08:33)
[2018-01-03] MEDS ORDERED: Bacitracin IV* 50,000 UNITS INJ ONE ×2 (08:33→15:14)
[2018-01-03] MEDS ORDERED: Lidocaine 2% PF * 5 ML VIAL ONE (08:37)
[2018-01-03] MEDS ORDERED: Propofol* 10 MG/ML 20 ML BTL IV PUSH ONE ×5 (08:37→15:13)
[2018-01-03] MEDS ORDERED: Rocuronium* 10 MG/ML VIAL ONE (08:40)
[2018-01-03] MEDS ORDERED: Midazolam* 1 MG/ML 2 ML VIAL (2 MG) ONE (08:41)
[2018-01-03] MEDS ORDERED: fentaNYL* 50 MCG/ML 2 ML VIAL (100 MCG VIAL) ONE (08:41)
[2018-01-03] MEDS ORDERED: Propofol* 0 MG/0 ML BTL ONE ×2 (08:46→12:00)
[2018-01-03] MEDS ORDERED: Remifentanil* 2 MG VIAL ONE (08:46)
[2018-01-03] MEDS ORDERED: Glycopyrrolate IV* 0.2 MG/ML 1 ML VIAL ONE (09:05)
[2018-01-03] MEDS ORDERED: Neostigmine Methylsulfate* 1 MG/ML 10 ML VIAL (1 mg/ml) ONE (09:05)
[2018-01-03] MEDS ORDERED: ceFAZolin 2 GM in NS PREMIX(*) 2 GM/100 ML BAG IVPB ONE (09:33)
[2018-01-03] MEDS ORDERED: Succinylcholine* 20 MG/ML 10 ML VIAL ONE (10:10)
[2018-01-03] MEDS: Insulin LISPRO* 1 UNITS UNIT SUBCUT SCH ×4 (10:38→23:35)
[2018-01-03] MEDS: Metoprolol Tartrate TAB* 25 MG PO SCH ×2 (10:40→21:27)
[2018-01-03] MEDS ORDERED: Phenylephrine INJ* 10 MG/ML 1 ML VIAL (10 MG) ONE (11:59)
[2018-01-03] MEDS ORDERED: Propofol* 1,000 MG/100 ML BTL ONE (15:17)
[2018-01-03] MEDS ORDERED: Ondansetron INJ* 2 MG/ML VIAL ONE (16:08)
[2018-01-03] MEDS ORDERED: Dexamethasone IV* 4 MG/ML 1 ML (4 MG) ONE (16:08)
[2018-01-03] MEDS ORDERED: Ketorolac INJ* 30 MG/ML 1 ML VIAL ONE (16:08)
[2018-01-03] MEDS ORDERED: HYDROmorphone INJ1* 1 MG/ML SYRINGE ONE ×2 (16:08→17:43)
[2018-01-03] MEDS ORDERED: Naloxone* 0.4 MG/ML 1 ML VIAL IV PRN (16:11)
[2018-01-03] MEDS ORDERED: diPHENhydraMINE IV* 50 MG/ML 1 ml VIAL (BENADRYL) IV PRN (16:11)
[2018-01-03] MEDS ORDERED: Acetaminophen IV 1GM/100ML * 1,000 MG/100 ML VIAL IVPB ONE (16:11)
[2018-01-03] MEDS ORDERED: Vancomycin(*) 1,000 MG VIAL ONE (16:13)
[2018-01-03] MEDS ORDERED: EPHEDrine (Pressors)* 50 MG/ML VIAL ONE ×2 (16:18→16:55)
[2018-01-03] MEDS ORDERED: Labetalol IV* 5 MG/ML 20 ML VIAL ONE (16:27)
--- NOTE | 2018-01-03 16:56 | PN ---
Subjective Date of Service: 01/03/18 Interval History: HOSPITALIST PROGRESS NOTE Patient seen and examined at bedside at PACU. Family member translating at bedside, patient stated she had pain 10/10 to her bedside nurse. Family History: Unchanged from Admission Social History: Unchanged from Admission Past Medical History: Unchanged from Admission Objective Active Medications: Acetaminophen (Tylenol Tab*) 650 mg PO Q4H PRN PRN Reason: FEVER/PAIN Atorvastatin Calcium (Lipitor*) 10 mg PO 1700 [facility] Last Admin: 01/02/18 17:59 Dose: 10 mg Dextrose (D50w Syringe 50 Ml*) 12.5 gm IV PUSH .FOR FS < 60 - SS PRN PRN Reason: FS < 60 Diphenhydramine HCl (Benadryl Iv*) 25 mg IV ONCE PRN PRN Reason: ITCHING Hydromorphone HCl (Dilaudid Inj1s*) 0.2 mg IV Q5M PRN PRN Reason: PAIN - SEVERE Sodium Chloride (Ns 0.9% 1000 Ml*) 1,000 mls @ 75 mls/hr IV PER RATE [facility] Last Admin: 01/02/18 23:54 Dose: 75 mls/hr Lactated Ringer's (Lactated Ringers 1000 Ml Bag*) 1,000 mls @ 125 mls/hr IV PER RATE [facility] Insulin Human Lispro (Humalog*) 0 units SUBCUT AC [facility]; Protocol Last Admin: 01/03/18 13:14 Dose: Not Given Metoprolol Tartrate (Lopressor Tab*) 12.5 mg PO Q12HR [facility] Last Admin: 01/03/18 10:40 Dose: Not Given Naloxone HCl (Narcan*) 0.08 mg IV Q2M PRN PRN Reason: severe induced resp depression Ondansetron HCl (Zofran Inj*) 4 mg IV Q6H PRN PRN Reason: NAUSEA Tramadol HCl (Ultram*) 50 mg PO Q8H PRN PRN Reason: PAIN Last Admin: 01/02/18 14:24 Dose: 50 mg Selected Entries 01/03/18 08:42 Temperature 97.7 F Pulse Rate 64 Respiratory 16 Rate Blood Pressure 154/82 (mmHg) O2 Sat by Pulse 96 Oximetry Oxygen Devices in Use Now: Nasal Cannula Appearance: Elderly lady lying in bed in NAD. Eyes: No Scleral Icterus Ears/Nose/Mouth/Throat: Mucous Membranes Moist Neck: Trachea Midline Neurological: - - Alert and awake Result Diagrams: 01/01/18 06:12 01/03/18 05:35 Assess/Plan/Problems-Billing Assessment: 62 yo F with h/o Acute promyelocytic leukemia dx in 2000 (pt at that point was in [facility] and subsequently developed CVA and AMI and cardiomyopathy) -now in remission, DM2, presents with L1 burst fx after a fall in 09/2017 and left foot drop - Patient Problems (1) Lumbar burst fracture Comment: - L1 repair today as per Dr Wang - complex surgery - management as per Neurosurgery. (2) DM2 (diabetes mellitus, type 2) Comment: - Continue Lispro SS. (3) Leukemia in remission Comment: Dr Torres d/w Dr. Aparicio - pt has been in remission for >10 years and her CBC does not indicate any recurrence. Pt has h/o CVA/VA when in [facility] in the acute stage of the disease in 2000 (4) DVT prophylaxis Comment: - Resume SQ heparin when okay by NSX. Status and Disposition: inpatient
--- NOTE | 2018-01-03 17:00 | RAD ---
INDICATION: T10 L4 fusion. COMPARISON: Comparison is made with a prior x-ray study of the lumbar spine from December 30, 2017. TECHNIQUE: Greater than one hour of intermittent fluoroscopic guidance of was provided and 7 spot films of the dorsal lumbar spine were obtained in the operating room. In addition CT images of the lower dorsal and upper lumbar spine were obtained in 2 data sets. FINDINGS: Again note is made of a moderate to severe burst fracture of the L1 vertebral body. There are multiple surgical instruments which project posteriorly. Subsequently there is placement of pedicle screws at the T11, T12, L2 and in L3 levels. IMPRESSION: INTRAOPERATIVE CONTROL FILMS. CPT II Codes: G9500
--- NOTE | 2018-01-03 17:03 | RAD ---
INDICATION: Lumbar fusion T10-L4. COMPARISON: Comparison is made with a prior intraoperative study of the same date and a prior x-ray study of the lumbar spine from December 30, 2017. TECHNIQUE: Greater than one hour of intermittent fluoroscopic guidance were provided and 6 spot films of the dorsal lumbar spine were obtained in the operating room. FINDINGS: The films demonstrate a posterior spinal fusion with pedicle screws from T11 to L3 stabilizing the burst fracture of the L1 vertebral body. IMPRESSION: INTRAOPERATIVE CONTROL FILMS. CPT II Codes: G9500
[2018-01-03] MEDS ORDERED: Acetaminophen IV 1GM/100ML * 100 ML ONE (17:37)
[2018-01-03] MEDS: HYDROmorphone INJ1* 1 MG/ML SYRINGE IV PRN ×5 (17:43→18:26)
[2018-01-03] MEDS ORDERED: Morphine INJ* 4 MG/ML 1 ML SYRINGE (NEW SYRINGE VERSION) IV PRN (18:23)
[2018-01-03] MEDS ORDERED: Morphine VIAL* 4 MG/ML VIAL (1 ml vial) IV ONE (19:26)
[2018-01-03] MEDS: Atorvastatin* 10 MG TAB PO SCH (21:26)
[2018-01-03] MEDS: Morphine VIAL* 4 MG/ML VIAL (1 ml vial) IV PRN (22:23)
[2018-01-04] MEDS: Morphine VIAL* 4 MG/ML VIAL (1 ml vial) IV PRN ×6 (01:12→17:57)
[2018-01-04] MEDS: Metoprolol Tartrate TAB* 25 MG PO SCH ×2 (09:45→21:21)
--- NOTE | 2018-01-04 09:45 | PN ---
Subjective Date of Service: 01/04/18 Interval History: HOSPITALIST PROGRESS NOTE Patient seen and examined at bedside. Care reviewed and d/w Patricia Marcial RN. She offers no new complaints. Pain is controlled, appears to be comfortable. Family History: Unchanged from Admission Social History: Unchanged from Admission Past Medical History: Unchanged from Admission Objective Active Medications: Acetaminophen (Tylenol Tab*) 650 mg PO Q4H PRN PRN Reason: FEVER/PAIN Hydrocodone Bitart/Acetaminophen ([place] 5-325 Tab*) 1 tab PO Q4H PRN PRN Reason: moderate pain Hydrocodone Bitart/Acetaminophen ([place] 5-325 Tab*) 2 tab PO Q4H PRN PRN Reason: marked pain Atorvastatin Calcium (Lipitor*) 10 mg PO 1700 [facility] Last Admin: 01/03/18 21:26 Dose: Not Given Dextrose (D50w Syringe 50 Ml*) 12.5 gm IV PUSH .FOR FS < 60 - SS PRN PRN Reason: FS < 60 Lactated Ringer's (Lactated Ringers 1000 Ml Bag*) 1,000 mls @ 125 mls/hr IV PER RATE [facility] Last Admin: 01/03/18 19:30 Dose: 125 mls/hr Insulin Human Lispro (Humalog*) 0 units SUBCUT ACHS [facility]; Protocol Last Admin: 01/03/18 23:35 Dose: 4 units Metoprolol Tartrate (Lopressor Tab*) 12.5 mg PO Q12HR [facility] Last Admin: 01/03/18 21:27 Dose: 12.5 mg Morphine Sulfate (Morphine Vial*) 1 mg IV Q1H PRN PRN Reason: PAIN Last Admin: 01/04/18 08:14 Dose: 1 mg Ondansetron HCl (Zofran Inj*) 4 mg IV Q6H PRN PRN Reason: NAUSEA Tramadol HCl (Ultram*) 50 mg PO Q8H PRN PRN Reason: PAIN Last Admin: 01/02/18 14:24 Dose: 50 mg Vital Signs - 8 hr 01/04/18 01/04/18 01/04/18 01:45 01:59 02:00 Temperature Pulse Rate 59 61 Respiratory 14 16 14 Rate Blood Pressure 108/52 110/61 (mmHg) O2 Sat by Pulse 95 96 Oximetry 01/04/18 01/04/18 01/04/18 02:15 02:30 02:45 Temperature Pulse Rate 63 62 61 Respiratory 10 12 12 Rate Blood Pressure 119/62 119/59 132/68 (mmHg) O2 Sat by Pulse 95 95 95 Oximetry 01/04/18 01/04/18 01/04/18 03:00 03:15 03:30 Temperature 99.0 F Pulse Rate 60 65 63 Respiratory 13 17 13 Rate Blood Pressure 135/74 123/65 135/63 (mmHg) O2 Sat by Pulse 96 96 97 Oximetry 01/04/18 01/04/18 01/04/18 03:45 03:59 04:00 Temperature 99.0 F Pulse Rate 60 57 Respiratory 13 18 13 Rate Blood Pressure 109/57 116/59 (mmHg) O2 Sat by Pulse 97 96 Oximetry 01/04/18 01/04/18 01/04/18 04:15 04:30 04:45 Temperature Pulse Rate 59 57 63 Respiratory 19 12 16 Rate Blood Pressure 121/63 112/57 131/59 (mmHg) O2 Sat by Pulse 96 96 96 Oximetry 01/04/18 01/04/18 01/04/18 05:00 05:15 05:20 Temperature 98.1 F Pulse Rate 57 57 Respiratory 17 17 Rate Blood Pressure 133/68 148/88 (mmHg) O2 Sat by Pulse 98 98 97 Oximetry 01/04/18 01/04/18 01/04/18 05:31 05:46 05:48 Temperature Pulse Rate 60 63 Respiratory 14 19 20 Rate Blood Pressure 140/62 122/60 (mmHg) O2 Sat by Pulse 98 98 Oximetry 01/04/18 01/04/18 01/04/18 05:59 06:00 06:15 Temperature Pulse Rate 64 66 Respiratory 18 20 18 Rate Blood Pressure 134/54 (mmHg) O2 Sat by Pulse 97 97 Oximetry 01/04/18 01/04/18 01/04/18 06:30 06:45 07:00 Temperature 98.8 F Pulse Rate 63 60 64 Respiratory 19 20 19 Rate Blood Pressure 135/65 133/54 148/72 (mmHg) O2 Sat by Pulse 97 99 99 Oximetry 01/04/18 01/04/18 01/04/18 07:16 07:30 07:45 Temperature Pulse Rate 63 59 64 Respiratory 18 13 18 Rate Blood Pressure 140/69 137/69 116/82 (mmHg) O2 Sat by Pulse 97 97 97 Oximetry 01/04/18 01/04/18 01/04/18 08:00 08:02 08:14 Temperature Pulse Rate 64 57 Respiratory 16 18 23 Rate Blood Pressure 133/73 (mmHg) O2 Sat by Pulse 99 100 Oximetry 01/04/18 01/04/18 01/04/18 08:16 08:30 08:45 Temperature Pulse Rate 60 56 58 Respiratory 21 18 17 Rate Blood Pressure 119/44 131/72 145/67 (mmHg) O2 Sat by Pulse 100 97 100 Oximetry 01/04/18 01/04/18 09:00 09:15 Temperature Pulse Rate 60 62 Respiratory 19 17 Rate Blood Pressure 161/69 164/72 (mmHg) O2 Sat by Pulse 98 98 Oximetry Oxygen Devices in Use Now: None Appearance: Pleasant lady lying in bed in NAD. Eyes: No Scleral Icterus Ears/Nose/Mouth/Throat: Mucous Membranes Moist Neck: Trachea Midline Respiratory: Symmetrical Chest Expansion and Respiratory Effort, Clear to Auscultation Cardiovascular: RRR - Normal S1 and S2 Abdominal: NL Sounds; No Tenderness; No Distention Neurological: Alert and Oriented x 3, NL Muscle Strength and Tone - with left foot drop Result Diagrams: 01/04/18 09:45 01/04/18 09:45 Assess/Plan/Problems-Billing Assessment: 62 yo F with h/o Acute promyelocytic leukemia dx in 2000 (pt at that point was in [facility] and subsequently developed CVA and AMI and cardiomyopathy) -now in remission, DM2, presents with L1 burst fx after a fall in 09/2017 and left foot drop - Patient Problems (1) Lumbar burst fracture Comment: - L1 repair 01/03/[address] Wang - complex surgery - management as per Neurosurgery. - May consider removing A line and Espinosa catheter depending on Neurosurgery plan. Will await recommendations about mobilization. (2) DM2 (diabetes mellitus, type 2) Comment: - Will add low dose Lantus and continue Lispro SS. (3) Leukemia in remission Comment: - Dr Torres d/w Dr. Aparicio - pt has been in remission for >10 years and her CBC does not indicate any recurrence. - Pt has h/o CVA/WA when in [facility] in the acute stage of the disease in 2000. (4) DVT prophylaxis Comment: - Resume SQ heparin when okay by Neurosurgery. (5) Full code status Status and Disposition: Inpatient
[2018-01-04 10:00] LABS: ABS Basophils 0 10^3/ul (0-0.2); ABS Eosinophils 0 10^3/ul (0-0.6); ABS Lymphocytes 1.6 10^3/ul (1.0-4.8); ABS Monocytes 0.6 10^3/ul (0-0.8); ABS Neutrophils 8.6 10^3/ul (1.5-7.7); ABS Nucleated RBC 0 10^3/ul; Eosinophil % 0 % (0-6); Hematocrit 32 % (35-47); Hemoglobin 10.5 g/dl (12.0-16.0); Lymphocyte % 14.9 % (25-47); Mean Corpuscular HGB Conc 33 g/dl (31-36); Mean Corpuscular Hemoglobin 26 pg (27-31); Mean Corpuscular Volume 79 fL (80-97); Nucleated Red Blood Cells % 0.1; Platelet Count 206 10^3/ul (150-450); Red Blood Count 4.05 10^6/ul (4.00-5.40); Red Cell Distribution Width 15 % (10.5-15); White Blood Count 10.9 10^3/ul (3.5-10.8)
[2018-01-04 10:15] LABS: EGFR Non-African American 112.4 (>60)
[2018-01-04] MEDS: Insulin LISPRO* 1 UNITS UNIT SUBCUT SCH ×4 (10:27→21:21)
[2018-01-04] MEDS: Insulin GLARGINE(*) 1 UNITS UNIT SUBCUT SCH (10:28)
--- NOTE | 2018-01-04 14:50 | OP ---
OPERATIVE REPORT: DATE OF OPERATION: 01/03/18 DATE OF : 57 SURGEON: Kathleen Wang MD CO-SURGEON: Yassine Baires MD ANESTHESIA: General. PRE-OP DIAGNOSIS: L1 burst fracture. POST-OP DIAGNOSIS: L1 burst fracture. OPERATIVE PROCEDURE: The patient underwent T11 thorough L3 posterolateral arthrodesis with T11, T12, L2, and L3 pedicle screw placement with laminectomies for decompression, T12, L1, and L2, with left transpedicular decompression at L1, with intraoperative navigation and monitoring. Locally harvested bone graft as well as DBX were used for arthrodesis. INDICATIONS: The patient is a very pleasant 62-year-old female with a history of a previous stroke with residual left-sided weakness that 2 months ago went for a trip to [facility], she sustained an injury to her back and she was diagnosed with L1 burst fracture that was treated conservatively with bed rest. The patient immediately after the injury had left foot paralysis and left lower extremity profound weakness. The patient presented to the emergency room with inability to walk and profound left lower extremity weakness and loss of sensation while CT scan and MRI findings confirmed the presence of an L1 burst fracture with canal compromise and bone fragment retropulsion. The patient was offered the option of surgical intervention and after explaining the expectation in addition to possible complications, the complications include, but not limited to, bleeding, infection, risk of injury to adjacent structures, coma, paralysis, , need for additional procedure, anesthesia risk, stroke, blindness, cancer, instability, hardware failure, adjacent level disease, proximal or distal junctional kyphosis, spinal fluid leak, pseudoarthrosis, need for additional procedure in the future, and inability to improve, the patient and her family were agreeable to proceed with surgery and informed consent was obtained. The patient and her family understood that her condition may not improve and in fact may get worse after surgery and she may need to have additional procedure in the future. They understood that operative plan may be modified according to intraoperative findings and conditions. The case was done with 2 attending physicians because of the complexity of the case. ESTIMATED BLOOD LOSS: 75 cc. COMPLICATIONS: None. DESCRIPTION OF PROCEDURE: The patient was brought to the operating room, was placed on general anesthesia by the anesthesia team. She was carefully positioned prone on the David table and all bony prominences were meticulously padded. Her skin was prepped and draped in the standard fashion. After appropriate surgical pause and patient identification, a midline incision was marked in the skin and the appropriate surgical level was confirmed with intraoperative fluoroscopic imaging. The skin was infiltrated with local anesthetic. A #10 surgical blade was used to incise the skin. Incision was carried down to dorsal fascia with the use of Bovie cautery and the dorsal fascia was divided on both sides of the spinous processes with the use of Bovie cautery. The paraspinal musculature was elevated in a subperiosteal fashion with use of periosteal elevator and Bovie cautery, and the spinous processes, lamina, and transverse processes of the levels T11, T12, L1, L2, and L3 were exposed. Of note, for level counting for this procedure, the counting scheme of the radiology description of the patient's fracture was followed, with fracture level labeled as L1. Navigation clamp was then secured over the spinous process of L3 and intraoperative CT was obtained with O-arm imaging. The patient's data was transferred to the navigation platform and under stereotactic navigation, the entry points and trajectories of the pedicle screws were determined and marked with high-speed drill. At the entry point, awl-tip tap with stereotactic navigation was used to cannulate the pedicles of T11, T12, L2, and L3, and [facility] [employer] pedicle screws were inserted with 6.5 x 40 mm length for the T11 and T12 level and 5.5 x 40 mm for the L2 and L3 level. Second intraoperative O- arm imaging was obtained and confirmed excellent placement of all hardware. Two titanium rods were cut and fashioned into shape and were secured temporarily at place. Extended laminectomy of the inferior part of T12, the whole L1, as well as the superior part of L2 was performed with the use of Leksell rongeurs, Kerrison punches, and high-speed drill. The locally harvested bone graft was used for the arthrodesis part of the case later. The thecal sac was found to be under significant tension and after the decompression laminectomy, thecal sac was completely free of any pressure phenomenon. Furthermore, a transpedicular approach on the left side was performed after removing the left side riki and the protruded bone fragments in the posterior part of the vertebral body at the level of the fracture were gently pushed anteriorly after undermining the fragments with high- speed drill under stereotactic navigation. At the end of the decompression, the thecal sac was found to be circumferentially free of any pressure phenomenon at the left side, which was the symptomatic side for the patient. Then, attention was brought to replace the left side riki and secure it with screw head caps, which were tightened and after decorticating the exposed bony surfaces as well as the transverse processes, locally harvested bone graft with DBX putty was used to perform the arthrodesis from T11 to L2. After copious irrigation and confirmation of meticulous hemostasis, a #7 RENAE drain was tunneled through a separate stab wound incision and after removing of the self- retained retractors, the wound was copiously irrigated and meticulously inspected, and meticulous hemostasis was confirmed. 1 g of vancomycin powder was used and the wound was closed by layers with #1 Vicryl and 0 Vicryl interrupted sutures to approximate the dorsal fascia and 2-0 inverted interrupted Vicryl suture to approximate the subcutaneous tissue, while the skin was approximated with #1 Prolene interrupted sutures. At the end of the procedure, all counts were reported to be correct. The patient remained hemodynamically stable throughout the case. Intraoperative electrophysiological monitoring remained stable throughout the case. Intraoperative fluoroscopic imaging confirmed excellent placement of all hardware and excellent alignment of her thoracolumbar spine. The patient was then extubated, was transferred to Recovery in excellent condition moving all extremities well. The case was done with 2 attending physicians because of the complexity of the case. [id number]/CPS #: [id number] MTDD
--- NOTE | 2018-01-04 15:00 | PN ---
Progress Note - Progress Note Date of Service: 01/04/18 SOAP: Subjective: []No events ON. Patient resting comfortably. In ICU. Di quintanilla. LLE preoperative numbness resolved. Objective: [] VSS, Afebrile. Wound s,c,d. RENAE in place. Drain output noted. AAOx3, MADAN, CN II -XII grossly intact. Motor 4-5/5 except RLE 4-/5, LLE HF, KE 3/4, FDF, EHL 0/5, PF 3/5 Sensory grossly intact to light touch. Assessment: []62 yof POD#1 T11-L3 arthrodesis for L1 fracture. Plan: []Monitor VS, Neurochecks. DVT prophylaxis IS Slowly increase HOB as tolerated and get patient OOB to a chair. PT eval OT eval for possible left AFO Monitor drain output XR of lumbar spine. Will need a TLSO brace. Nutrition consult. DC planning, will most likely need rehabilitation, consider consult early. Consider orthopedic evaluation for hx of left hip dislocation, as family reported recently. Appreciate IM care. Reese Wang MD
[2018-01-04] MEDS: Atorvastatin* 10 MG TAB PO SCH (18:13)
[2018-01-04] MEDS: HYDROcodone/ACETAMIN 5-325 MG* 1 TAB PO PRN ×2 (19:48)
[2018-01-05] MEDS: HYDROcodone/ACETAMIN 5-325 MG* 1 TAB PO PRN ×4 (05:58→19:41)
[2018-01-05 07:19] LABS: ABS Basophils 0 10^3/ul (0-0.2); ABS Eosinophils 0.1 10^3/ul (0-0.6); ABS Lymphocytes 1.7 10^3/ul (1.0-4.8); ABS Monocytes 0.8 10^3/ul (0-0.8); ABS Neutrophils 7.7 10^3/ul (1.5-7.7); ABS Nucleated RBC 0 10^3/ul; Eosinophil % 0.6 % (0-6); Hematocrit 31 % (35-47); Hemoglobin 10.2 g/dl (12.0-16.0); Lymphocyte % 16.8 % (25-47); Mean Corpuscular HGB Conc 33 g/dl (31-36); Mean Corpuscular Hemoglobin 26 pg (27-31); Mean Corpuscular Volume 78 fL (80-97); Mean Platelet Volume 8.9 um3 (7.4-10.4); Nucleated Red Blood Cells % 0; Platelet Count 175 10^3/ul (150-450); Red Blood Count 3.94 10^6/ul (4.00-5.40); Red Cell Distribution Width 14 % (10.5-15); White Blood Count 10.3 10^3/ul (3.5-10.8)
[2018-01-05 07:39] LABS: EGFR Non-African American 134.7 (>60)
[2018-01-05] MEDS: Insulin LISPRO* 1 UNITS UNIT SUBCUT SCH ×4 (08:41→21:22)
[2018-01-05] MEDS: Metoprolol Tartrate TAB* 25 MG PO SCH ×2 (08:42→21:25)
[2018-01-05] MEDS: Insulin GLARGINE(*) 1 UNITS UNIT SUBCUT SCH (11:06)
--- NOTE | 2018-01-05 11:33 | RAD ---
Indication: Postop T10-L4 fusion January 03, 2018. Comparison: December 30, 2017 Technique: Supine AP and crosstable lateral views lower thoracic and lumbar sacral spine. Report: Spinal fixation rods span from T11 through L3 with pedicle screws at T11, T12, L2, and L3. Unchanged anterior and middle column L1 compression fracture with approximate 50% loss of height at the anterior margin and mild dorsal bulging of the middle column. No evidence for component failure or loosening. Surgical drain enters the region of instrumentation from the inferior aspect with the tip of the drain at the T12 level. Unremarkable paraspinal soft tissue contours. IMPRESSION: #. Unremarkable short interval follow-up after T11-L3 posterior fusion spanning the L1 fracture level.
[2018-01-05] MEDS ORDERED: Insulin GLARGINE(*) 1 UNITS UNIT SUBCUT ONE (15:40)
--- NOTE | 2018-01-05 15:40 | PN ---
Subjective Date of Service: 01/05/18 Interval History: HOSPITALIST PROGRESS NOTE Patient seen and examined at bedside. She feels better today. Pain is controlled, but she has not moved much, and is reluctant to raise HOB further. Tolerating diet well. Family History: Unchanged from Admission Social History: Unchanged from Admission Past Medical History: Unchanged from Admission Objective Active Medications: Acetaminophen (Tylenol Tab*) 650 mg PO Q4H PRN PRN Reason: FEVER/PAIN Hydrocodone Bitart/Acetaminophen ([place] 5-325 Tab*) 1 tab PO Q4H PRN PRN Reason: moderate pain Last Admin: 01/05/18 14:01 Dose: 1 tab Hydrocodone Bitart/Acetaminophen ([place] 5-325 Tab*) 2 tab PO Q4H PRN PRN Reason: marked pain Last Admin: 01/04/18 19:48 Dose: 2 tab Atorvastatin Calcium (Lipitor*) 10 mg PO 1700 SHERYL Last Admin: 01/04/18 18:13 Dose: 10 mg Dextrose (D50w Syringe 50 Ml*) 12.5 gm IV PUSH .FOR FS < 60 - SS PRN PRN Reason: FS < 60 Insulin Glargine (Lantus(*)) 10 units SUBCUT Q24H [facility] Last Admin: 01/05/18 11:06 Dose: 10 units Insulin Human Lispro (Humalog*) 0 units SUBCUT [facility]; Protocol Last Admin: 01/05/18 13:09 Dose: 2 units Metoprolol Tartrate (Lopressor Tab*) 12.5 mg PO Q12HR [facility] Last Admin: 01/05/18 08:42 Dose: 12.5 mg Morphine Sulfate (Morphine Vial*) 1 mg IV Q1H PRN PRN Reason: PAIN Last Admin: 01/04/18 17:57 Dose: 1 mg Ondansetron HCl (Zofran Inj*) 4 mg IV Q6H PRN PRN Reason: NAUSEA Tramadol HCl (Ultram*) 50 mg PO Q8H PRN PRN Reason: PAIN Last Admin: 01/02/18 14:24 Dose: 50 mg Vital Signs - 8 hr 01/05/18 01/05/18 01/05/18 08:00 09:00 10:00 Temperature 98.9 F Pulse Rate 75 77 74 Respiratory 24 17 17 Rate Blood Pressure 135/83 116/74 103/72 (mmHg) O2 Sat by Pulse 96 96 96 Oximetry 01/05/18 01/05/18 01/05/18 10:42 11:00 11:57 Temperature Pulse Rate 72 72 70 Respiratory 18 20 14 Rate Blood Pressure 110/50 101/63 123/63 (mmHg) O2 Sat by Pulse 95 96 100 Oximetry 01/05/18 01/05/18 01/05/18 12:00 13:00 14:00 Temperature 99.7 F Pulse Rate 69 71 71 Respiratory 20 21 21 Rate Blood Pressure 119/68 126/72 (mmHg) O2 Sat by Pulse 96 96 95 Oximetry 01/05/18 15:00 Temperature Pulse Rate 75 Respiratory 19 Rate Blood Pressure 137/76 (mmHg) O2 Sat by Pulse 98 Oximetry Oxygen Devices in Use Now: None Appearance: Pleasant lady sitting up in bed in NAD. Eyes: No Scleral Icterus Ears/Nose/Mouth/Throat: Mucous Membranes Moist Neck: Trachea Midline Respiratory: Symmetrical Chest Expansion and Respiratory Effort, Clear to Auscultation Cardiovascular: RRR - Normal S1 and S2 Abdominal: NL Sounds; No Tenderness; No Distention Extremities: No Edema Neurological: Alert and Oriented x 3, NL Muscle Strength and Tone, - - Left foot drop Result Diagrams: 01/05/18 07:10 01/05/18 07:10 Assess/Plan/Problems-Billing Assessment: 62 yo F with h/o Acute promyelocytic leukemia dx in 2000 (pt at that point was in [facility] and subsequently developed CVA and AMI and cardiomyopathy) -now in remission, DM2, presents with L1 burst fx after a fall in 09/2017 and left foot drop - Patient Problems (1) Lumbar burst fracture Comment: - L1 repair 01/03/[address] Wang - complex surgery - management as per Neurosurgery. - Plan to increase mobilization as tolerated. (2) DM2 (diabetes mellitus, type 2) Comment: - Increase Lantus to 15 and continue Lispro SS. (3) Leukemia in remission Comment: - Dr Torres d/w Dr. Aparicio - pt has been in remission for >10 years and her CBC does not indicate any recurrence. - Pt has h/o CVA/DC when in [facility] in the acute stage of the disease in 2000. (4) DVT prophylaxis Comment: - Resume SQ heparin when okay by Neurosurgery. - SCDs. (5) Full code status Status and Disposition: Inpatient
--- NOTE | 2018-01-05 17:42 | PN ---
Progress Note - Progress Note Date of Service: 01/05/18 SOAP: Subjective: []No events ON. Patient resting comfortably. In ICU. Objective: []VSS, Afebrile. Wound s,c,d. RENAE in place. Drain output noted. AAOx3, MADAN, CN II -XII grossly intact. Motor 4-5/5 except RLE 4-/5, LLE HF, KE 3/4, FDF, EHL 0/5, PF 3/5 Sensory grossly intact to light touch. Assessment: []62 yof POD#2 T11-L3 arthrodesis for L1 fracture. Plan: []Monitor VS, Neurochecks. DVT prophylaxis. May start SQ Heparin tomorrow after removing drain IS Slowly increase HOB as tolerated and get patient OOB to a chair. PT eval OT eval, patient will need a left AFO Monitor drain output XR of lumbar spine revealed good placement of hardware, good alignment. Will need a TLSO brace. Nutrition consult. DC planning, will most likely need rehabilitation, consider consult early. Consider orthopedic evaluation for hx of left hip dislocation. Appreciate IM care. Reese Wang MD
[2018-01-05] MEDS: Atorvastatin* 10 MG TAB PO SCH (18:11)
[2018-01-06] MEDS: HYDROcodone/ACETAMIN 5-325 MG* 1 TAB PO PRN ×3 (06:27→14:40)
--- NOTE | 2018-01-06 07:29 | RAD ---
INDICATION: Pelvic pain. COMPARISON: Comparison is made with a prior CT of the pelvis from December 29, 2017. TECHNIQUE: AP and frog-leg lateral views of the pelvis were obtained. FINDINGS: There is a metallic device which projects over the lower lumbar spine. The bones are in normal alignment. No fracture is seen. There is mild bilateral osteoarthritic change in the hips. IMPRESSION: NO EVIDENCE FOR ACUTE FINDING. R1
[2018-01-06] MEDS: Metoprolol Tartrate TAB* 25 MG PO SCH ×2 (09:14→20:29)
[2018-01-06] MEDS: Insulin GLARGINE(*) 1 UNITS UNIT SUBCUT SCH (09:15)
[2018-01-06] MEDS: Insulin LISPRO* 1 UNITS UNIT SUBCUT SCH ×4 (09:15→21:04)
[2018-01-06] MEDS: diPHENhydraMINE IV* 50 MG/ML 1 ml VIAL (BENADRYL) IV PRN ×2 (10:52→20:22)
[2018-01-06] MEDS ORDERED: Magnesium Hydroxide LIQ* 30 ML UDC PO PRN (12:08)
[2018-01-06] MEDS ORDERED: Docusate CAP* 100 MG PO PRN (12:08)
[2018-01-06] MEDS: Polyethylene Glycol 3350* 17 GM PACKET PO SCH ×2 (13:01→21:06)
--- NOTE | 2018-01-06 13:26 | PN ---
Subjective Date of Service: 01/06/18 Interval History: HOSPITALIST PROGRESS NOTE Patient seen and examined at bedside. Care reviewed and d/w Priyanka Mora RN. She feels well today, in good spirits. Looking forward to PT today. Pain is controlled. Family History: Unchanged from Admission Social History: Unchanged from Admission Past Medical History: Unchanged from Admission Objective Active Medications: Acetaminophen (Tylenol Tab*) 650 mg PO Q4H PRN PRN Reason: FEVER/PAIN Hydrocodone Bitart/Acetaminophen ([place] 5-325 Tab*) 1 tab PO Q4H PRN PRN Reason: moderate pain Last Admin: 01/05/18 14:01 Dose: 1 tab Hydrocodone Bitart/Acetaminophen ([place] 5-325 Tab*) 2 tab PO Q4H PRN PRN Reason: marked pain Last Admin: 01/06/18 09:47 Dose: 2 tab Atorvastatin Calcium (Lipitor*) 10 mg PO 1700 SHERYL Last Admin: 01/05/18 18:11 Dose: 10 mg Dextrose (D50w Syringe 50 Ml*) 12.5 gm IV PUSH .FOR FS < 60 - SS PRN PRN Reason: FS < 60 Diphenhydramine HCl (Benadryl Iv*) 25 mg IV Q6H PRN PRN Reason: Pruritis/Rash Last Admin: 01/06/18 10:52 Dose: 25 mg Docusate Sodium (Colace Cap*) 100 mg PO BID PRN PRN Reason: CONSTIPATION Last Admin: 01/06/18 13:01 Dose: 100 mg Insulin Glargine (Lantus(*)) 15 units SUBCUT Q24H [facility] Last Admin: 01/06/18 09:15 Dose: 15 units Insulin Human Lispro (Humalog*) 0 units SUBCUT [facility]; Protocol Last Admin: 01/06/18 13:01 Dose: 2 units Magnesium Hydroxide (Milk Of Magnesia Liq*) 30 ml PO Q6H PRN PRN Reason: CONSTIPATION Metoprolol Tartrate (Lopressor Tab*) 12.5 mg PO Q12HR [facility] Last Admin: 01/06/18 09:14 Dose: 12.5 mg Morphine Sulfate (Morphine Vial*) 1 mg IV Q1H PRN PRN Reason: PAIN Last Admin: 01/04/18 17:57 Dose: 1 mg Ondansetron HCl (Zofran Inj*) 4 mg IV Q6H PRN PRN Reason: NAUSEA Polyethylene Glycol/Electrolytes (Miralax*) 17 gm PO 0800,2100 SHERYL Last Admin: 01/06/18 13:01 Dose: 17 gm Tramadol HCl (Ultram*) 50 mg PO Q8H PRN PRN Reason: PAIN Last Admin: 01/02/18 14:24 Dose: 50 mg Vital Signs - 8 hr 01/06/18 01/06/18 01/06/18 05:49 06:27 07:17 Temperature 98.2 F 98.0 F Pulse Rate 72 68 Respiratory 16 16 16 Rate Blood Pressure 123/60 108/58 (mmHg) O2 Sat by Pulse 98 96 Oximetry 01/06/18 01/06/18 01/06/18 08:00 09:15 09:47 Temperature Pulse Rate Respiratory 18 18 18 Rate Blood Pressure (mmHg) O2 Sat by Pulse Oximetry 01/06/18 01/06/18 01/06/18 10:52 11:32 12:11 Temperature 98.2 F Pulse Rate 64 Respiratory 18 18 18 Rate Blood Pressure 99/59 (mmHg) O2 Sat by Pulse 99 Oximetry Oxygen Devices in Use Now: None Appearance: Pleasant lady lying in bed in NAD, TLSO in place, appears to be comfortable Eyes: No Scleral Icterus Ears/Nose/Mouth/Throat: Mucous Membranes Moist Neck: Trachea Midline Respiratory: Symmetrical Chest Expansion and Respiratory Effort, Clear to Auscultation Cardiovascular: RRR - Normal S1 and S2 Abdominal: NL Sounds; No Tenderness; No Distention Neurological: Alert and Oriented x 3, NL Muscle Strength and Tone - Except for left foot drop Result Diagrams: 01/05/18 07:10 01/05/18 07:10 Assess/Plan/Problems-Billing Assessment: 62 yo F with h/o Acute promyelocytic leukemia dx in 2000 (pt at that point was in [facility] and subsequently developed CVA and AMI and cardiomyopathy) -now in remission, DM2, presents with L1 burst fx after a fall in 09/2017 and left foot drop - Patient Problems (1) Lumbar burst fracture Comment: - S/p T11-L3 arthrodesis 01/03/[address] Wang - complex surgery - management as per Neurosurgery. - Plan to increase mobilization today with PT with TLSO in place. (2) DM2 (diabetes mellitus, type 2) Comment: - Better controlled. - Continue Lantus 15 units and Lispro SS. (3) Leukemia in remission Comment: - Dr Torres d/w Dr. Aparicio - pt has been in remission for >10 years and her CBC does not indicate any recurrence. - Pt has h/o CVA/[place] when in [facility] in the acute stage of the disease in 2000. (4) DVT prophylaxis Comment: - Will resume SQ heparin when drain removed as per Neurosurgery recommendation. - SCDs. (5) Full code status Status and Disposition: Inpatient
[2018-01-06] MEDS: Atorvastatin* 10 MG TAB PO SCH (16:46)
--- NOTE | 2018-01-06 19:09 | PN ---
Progress Note - Progress Note Date of Service: 01/06/18 SOAP: Subjective: []No events ON. Patient resting comfortably. On regular floor. Ambulated with brace today. Voids. Tolerates PO well. Feels quite well. Skin rash noted. On Benadryl per Dr Marcelo. Objective: [] VSS, Afebrile. Wound s,c,d. RENAE was removed. Catheter appeared to be intact. No complications. Patient tolerated procedure well. AAOx3, MADAN, CN II -XII grossly intact. Motor 4-5/5 except RLE 4-/5, LLE HF, KE 3/4, FDF, EHL 0/5, PF 3/5 Sensory grossly intact to light touch. Assessment: []62 yof POD#3 T11-L3 arthrodesis for L1 fracture. Plan: [] Monitor VS, Neurochecks. DVT prophylaxis. May start SQ Heparin. IS PT eval OT eval, patient was fitted for a left AFO. TLSO brace when OOB. Nutrition consult. DC planning, will most likely need rehabilitation. Ok to dc from NS standpoint. Pelvis XR w/o acute findings. Appreciate IM care. Reese Wang MD
[2018-01-06] MEDS: traMADol TAB* 50 MG PO PRN (20:30)
[2018-01-07] MEDS: diPHENhydraMINE IV* 50 MG/ML 1 ml VIAL (BENADRYL) IV PRN ×2 (00:56→05:48)
[2018-01-07] MEDS: Acetaminophen TAB* 325 MG PO PRN ×2 (05:46→21:29)
[2018-01-07 05:57] LABS: ABS Basophils 0 10^3/ul (0-0.2); ABS Eosinophils 0.3 10^3/ul (0-0.6); ABS Lymphocytes 1.6 10^3/ul (1.0-4.8); ABS Monocytes 0.6 10^3/ul (0-0.8); ABS Neutrophils 14.9 10^3/ul (1.5-7.7); ABS Nucleated RBC 0 10^3/ul; Eosinophil % 1.9 % (0-6); Hematocrit 33 % (35-47); Lymphocyte % 9.2 % (25-47); Mean Corpuscular HGB Conc 33 g/dl (31-36); Mean Corpuscular Hemoglobin 26 pg (27-31); Mean Corpuscular Volume 79 fL (80-97); Mean Platelet Volume 9.1 um3 (7.4-10.4); Nucleated Red Blood Cells % 0; Platelet Count 255 10^3/ul (150-450); Red Blood Count 4.25 10^6/ul (4.00-5.40); Red Cell Distribution Width 14 % (10.5-15); White Blood Count 17.5 10^3/ul (3.5-10.8)
[2018-01-07 06:13] LABS: EGFR Non-African American 107.8 (>60)
[2018-01-07] MEDS: Insulin LISPRO* 1 UNITS UNIT SUBCUT SCH ×4 (09:25→22:53)
[2018-01-07] MEDS: Polyethylene Glycol 3350* 17 GM PACKET PO SCH ×2 (09:25→22:58)
[2018-01-07] MEDS: Metoprolol Tartrate TAB* 25 MG PO SCH (09:25)
[2018-01-07] MEDS: Insulin GLARGINE(*) 1 UNITS UNIT SUBCUT SCH (09:29)
[2018-01-07] MEDS ORDERED: diPHENhydraMINE IV* 50 MG in NS 0.9% 50 ML* 50 ML IVPB PRN (10:11)
--- NOTE | 2018-01-07 10:12 | PN ---
Progress Note - Progress Note Date of Service: 01/07/18 SOAP: Subjective: [] No events ON. Patient resting comfortably. On regular floor. Ambulated with brace yesterday. Voids. Tolerates PO well. Feels quite well. Skin rash improved. Objective: []VSS, Afebrile. Wound s,c,d. AAOx3, MADAN, CN II -XII grossly intact. Motor 4-5/5 except RLE 4-/5, LLE HF, KE 3/4, FDF, EHL 0/5, PF 3/5 Sensory grossly intact to light touch. Assessment: []62 yof POD#4 T11-L3 arthrodesis for L1 fracture. Plan: [] Monitor VS, Neurochecks. DVT prophylaxis. May start SQ Heparin. IS PT eval OT eval, patient was fitted for a left AFO. TLSO brace when OOB. Nutrition consult. DC planning, will most likely need rehabilitation. Ok to dc from NS standpoint. Talked with family at bedside. Appreciate IM care. Reese Wang MD
[2018-01-07] MEDS ORDERED: Metoprolol Tartrate TAB* 25 MG PO SCH (10:16)
[2018-01-07] MEDS ORDERED: Famotidine IV * 20 MG in NS 0.9% 100 ML* 100 ML IVPB SCH (11:00)
[2018-01-07] MEDS: diPHENhydraMINE IV* 50 MG/ML 1 ml VIAL (BENADRYL) SLOW PUSH PRN ×2 (11:21→18:25)
[2018-01-07] MEDS: Hydrocortisone 1% CREAM* 30 GM TUBE TOPICAL SCH ×3 (11:22→21:42)
[2018-01-07] MEDS: Famotidine IV* 10 MG/ML 2 ML (20 mg) IV SLOW PU SCH ×2 (11:22→21:42)
--- NOTE | 2018-01-07 13:36 | PN ---
Subjective Date of Service: 01/07/18 Interval History: HOSPITALIST PROGRESS NOTE Patient seen and examined at bedside. Care reviewed and d/w Ana Elena RN. She feels better today, pain is controlled, appetite is good, no N/V. Major complaint is pruritic rash involving trunk, upper arms, inner thighs. Not tender , no facial rash, palms/soles are spared, as well as oral mucosa. Family History: Unchanged from Admission Social History: Unchanged from Admission Past Medical History: Unchanged from Admission Objective Active Medications: Acetaminophen (Tylenol Tab*) 650 mg PO Q4H PRN PRN Reason: FEVER/PAIN Last Admin: 01/07/18 05:46 Dose: 650 mg Hydrocodone Bitart/Acetaminophen ([place] 5-325 Tab*) 1 tab PO Q4H PRN PRN Reason: moderate pain Last Admin: 01/05/18 14:01 Dose: 1 tab Hydrocodone Bitart/Acetaminophen ([place] 5-325 Tab*) 2 tab PO Q4H PRN PRN Reason: marked pain Last Admin: 01/06/18 14:40 Dose: 2 tab Atorvastatin Calcium (Lipitor*) 10 mg PO 1700 SHERYL Last Admin: 01/06/18 16:46 Dose: 10 mg Dextrose (D50w Syringe 50 Ml*) 12.5 gm IV PUSH .FOR FS < 60 - SS PRN PRN Reason: FS < 60 Diphenhydramine HCl (Benadryl Iv*) 50 mg SLOW PUSH Q6H PRN PRN Reason: ITCHING Last Admin: 01/07/18 11:21 Dose: 50 mg Docusate Sodium (Colace Cap*) 100 mg PO BID PRN PRN Reason: CONSTIPATION Last Admin: 01/06/18 13:01 Dose: 100 mg Famotidine (Pepcid Iv*) 20 mg IV SLOW PU BID SHERYL Last Admin: 01/07/18 11:22 Dose: 20 mg Heparin Sodium (Porcine) (Heparin Vial(*)) 5,000 units SUBCUT Q8HR SHERYL Hydrocortisone (Hytone Cream 1%*) 1 applic TOPICAL TID SHERYL Last Admin: 01/07/18 11:22 Dose: 1 applic Insulin Glargine (Lantus(*)) 20 units SUBCUT Q24H SHERYL Insulin Human Lispro (Humalog*) 0 units SUBCUT [facility]; Protocol Magnesium Hydroxide (Milk Of Magnesia Liq*) 30 ml PO Q6H PRN PRN Reason: CONSTIPATION Morphine Sulfate (Morphine Vial*) 1 mg IV Q1H PRN PRN Reason: PAIN Last Admin: 01/04/18 17:57 Dose: 1 mg Ondansetron HCl (Zofran Inj*) 4 mg IV Q6H PRN PRN Reason: NAUSEA Polyethylene Glycol/Electrolytes (Miralax*) 17 gm PO 0800,2100 SHERYL Last Admin: 01/07/18 09:25 Dose: 17 gm Tramadol HCl (Ultram*) 50 mg PO Q8H PRN PRN Reason: PAIN Last Admin: 01/06/18 20:30 Dose: 50 mg Vital Signs - 8 hr 01/07/18 01/07/18 01/07/18 05:48 07:41 08:00 Temperature 99.3 F Pulse Rate 88 Respiratory 16 16 16 Rate Blood Pressure 99/57 (mmHg) O2 Sat by Pulse 96 Oximetry 01/07/18 01/07/18 11:21 12:51 Temperature Pulse Rate Respiratory 18 15 Rate Blood Pressure (mmHg) O2 Sat by Pulse Oximetry Oxygen Devices in Use Now: None Appearance: Pleasant lady lying in bed in NAD Eyes: No Scleral Icterus Ears/Nose/Mouth/Throat: Mucous Membranes Moist Neck: Trachea Midline Respiratory: Symmetrical Chest Expansion and Respiratory Effort, Clear to Auscultation Cardiovascular: RRR - Normal S1 and S2 Skin: - - Maculo papular rash spreading from trunk to upper extremities, inner thighs. No target lesions, nor oral mucosa. Palms and soles spared Neurological: Alert and Oriented x 3, NL Muscle Strength and Tone, - - Left foot drop Result Diagrams: 01/07/18 05:42 01/07/18 05:42 Assess/Plan/Problems-Billing Assessment: 62 yo F with h/o Acute promyelocytic leukemia dx in 2000 (pt at that point was in [facility] and subsequently developed CVA and AMI and cardiomyopathy) -now in remission, DM2, presents with L1 burst fx after a fall in 09/2017 and left foot drop - Patient Problems (1) Rash Comment: - Morbiliforme rash suggestive of drug reaction - Hydrocodone and Metoprolol are new medications. Heparin recently ordered but had not yet been given when rash noted. - Will d/c Metoprolol for now and monitor. - Increase Benadryl, add Famotidine, and hydrocortisone cream. - Avoid systemic steroids in the setting of recent spinal surgery and diabetes. (2) Leukocytosis Comment: - Likely stress reaction to surgery, no signs of infection at this time. - Continue to monitor. (3) Hypotension Comment: - Suspect secondary to Metoprolol. No signs of infection at this point. Will continue to monitor. (4) Lumbar burst fracture Comment: - S/p T11-L3 arthrodesis 01/03/[address] Wang - complex surgery - management as per Neurosurgery. - Continue PT with TLSO in place. Awaiting AFO. (5) DM2 (diabetes mellitus, type 2) Comment: - Increase Lantus to 20 units and Lispro SS. (6) Leukemia in remission Comment: - Dr Torres d/w Dr. Aparicio - pt has been in remission for >10 years and her CBC does not indicate any recurrence. - Pt has h/o [place] when in [facility] in the acute stage of the disease in 2000. (7) DVT prophylaxis Comment: - SQ heparin/SCDs. (8) Full code status Status and Disposition: Inpatient
[2018-01-07] MEDS: Heparin VIAL(*) 5000 UNITS/ML VIAL (FIVE THOUSAND) SUBCUT SCH ×2 (14:18→23:00)
[2018-01-07] MEDS: traMADol TAB* 50 MG PO PRN (14:26)
[2018-01-07] MEDS: Atorvastatin* 10 MG TAB PO SCH (18:20)
[2018-01-07] MEDS ORDERED: NS 0.9% 1000 ML* 1,000 ML IV ONE (23:36)
[2018-01-08 05:58] LABS: ABS Basophils 0.1 10^3/ul (0-0.2); ABS Eosinophils 0.5 10^3/ul (0-0.6); ABS Lymphocytes 2.1 10^3/ul (1.0-4.8); ABS Monocytes 0.6 10^3/ul (0-0.8); ABS Neutrophils 13.1 10^3/ul (1.5-7.7); ABS Nucleated RBC 0 10^3/ul; Eosinophil % 3.1 % (0-6); Hematocrit 32 % (35-47); Hemoglobin 10.4 g/dl (12.0-16.0); Mean Corpuscular HGB Conc 33 g/dl (31-36); Mean Corpuscular Hemoglobin 26 pg (27-31); Mean Corpuscular Volume 79 fL (80-97); Nucleated Red Blood Cells % 0; Platelet Count 256 10^3/ul (150-450); Red Blood Count 4.08 10^6/ul (4.00-5.40); Red Cell Distribution Width 14 % (10.5-15); White Blood Count 16.5 10^3/ul (3.5-10.8)
[2018-01-08 06:14] LABS: EGFR Non-African American 99.7 (>60)
[2018-01-08] MEDS: Acetaminophen TAB* 325 MG PO PRN ×3 (06:35→18:01)
[2018-01-08] MEDS: Heparin VIAL(*) 5000 UNITS/ML VIAL (FIVE THOUSAND) SUBCUT SCH ×3 (06:36→22:52)
[2018-01-08 06:53] LABS: Urine Appearance Turbid; Urine Blood 1+ (Negative); Urine Color Amber; Urine Ketones 1+ (Negative); Urine Protein 1+(30 mg/dL) (Negative); Urine Red Blood Cell 1+(3-5/hpf) (Absent); Urine Specific Gravity 1.026 (1.010-1.030); Urine Urobilinogen Negative (Negative); Urine White Blood Cell 3+(>20/hpf) (Absent)
[2018-01-08] MEDS: NS 0.9% 1000 ML* 2,000 ML IV ONE ×2 (08:07→09:57)
[2018-01-08] MEDS: Insulin LISPRO* 1 UNITS UNIT SUBCUT SCH ×4 (08:46→20:56)
[2018-01-08] MEDS: Insulin GLARGINE(*) 1 UNITS UNIT SUBCUT SCH (08:46)
[2018-01-08] MEDS: Hydrocortisone 1% CREAM* 30 GM TUBE TOPICAL SCH ×3 (08:48→20:22)
[2018-01-08] MEDS: Famotidine IV* 10 MG/ML 2 ML (20 mg) IV SLOW PU SCH ×2 (08:51→20:28)
[2018-01-08] MEDS: cefTRIAXone(*) 1 GM in NS 0.9% 50 ML* 50 ML IVPB SCH (08:53)
[2018-01-08] MEDS: Polyethylene Glycol 3350* 17 GM PACKET PO SCH ×2 (08:55→20:59)
--- NOTE | 2018-01-08 09:41 | PN ---
Progress Note - Progress Note Date of Service: 01/08/18 SOAP: Subjective: []No events ON except mild dizziness when OOB . Patient resting comfortably. On regular floor. Ambulated with brace yesterday. Voids. Tolerates PO well. Objective: [] VSS, Afebrile. Wound s,c,d. AAOx3, MADAN, CN II -XII grossly intact. Motor 4-5/5 except RLE 4-/5, LLE HF, KE 3/4, FDF, EHL 0/5, PF 3/5 Sensory grossly intact to light touch. Assessment: []62 yof POD#5 T11-L3 arthrodesis for L1 fracture. Plan: []Monitor VS, Neurochecks. DVT prophylaxis. IS PT /OT TLSO brace when OOB. Nutrition consult. UA suggestive of UTI, treatment per IM team. DC planning. Appreciate IM care. Reese Wang MD
--- NOTE | 2018-01-08 10:08 | RAD ---
HISTORY: Sepsis COMPARISONS: November 18, 2009 VIEWS: 4: Frontal dual-energy and lateral views of the chest. Evaluation is somewhat limited by overlying fixation hardware. FINDINGS: CARDIOMEDIASTINAL SILHOUETTE: The cardiomediastinal silhouette is normal. MODE: The mode are normal. PLEURA: The costophrenic angles are sharp. No pleural abnormalities are noted. LUNG PARENCHYMA: The lungs are clear. ABDOMEN: The upper abdomen is clear. There is no subphrenic gas. BONES AND SOFT TISSUES: There is postsurgical change to the spine. OTHER: None. IMPRESSION: NO ACTIVE CARDIOPULMONARY DISEASE.
[2018-01-08] MEDS: diPHENhydraMINE IV* 50 MG/ML 1 ml VIAL (BENADRYL) SLOW PUSH PRN (10:26)
[2018-01-08] MEDS: Atorvastatin* 10 MG TAB PO SCH (17:19)
--- NOTE | 2018-01-08 17:42 | PN ---
Subjective Date of Service: 01/08/18 Interval History: HOSPITALIST PROGRESS NOTE Patient seen and examined at bedside. She feels better today. Low grade temperature overnight, denies N/V. Rash and itching are less intense. Family History: Unchanged from Admission Social History: Unchanged from Admission Past Medical History: Unchanged from Admission Objective Active Medications: Acetaminophen (Tylenol Tab*) 650 mg PO Q4H PRN PRN Reason: FEVER/PAIN Last Admin: 01/08/18 13:42 Dose: 650 mg Hydrocodone Bitart/Acetaminophen ([place] 5-325 Tab*) 1 tab PO Q4H PRN PRN Reason: moderate pain Last Admin: 01/05/18 14:01 Dose: 1 tab Hydrocodone Bitart/Acetaminophen ([place] 5-325 Tab*) 2 tab PO Q4H PRN PRN Reason: marked pain Last Admin: 01/06/18 14:40 Dose: 2 tab Atorvastatin Calcium (Lipitor*) 10 mg PO 1700 [facility] Last Admin: 01/08/18 17:19 Dose: 10 mg Dextrose (D50w Syringe 50 Ml*) 12.5 gm IV PUSH .FOR FS < 60 - SS PRN PRN Reason: FS < 60 Diphenhydramine HCl (Benadryl Iv*) 50 mg SLOW PUSH Q6H PRN PRN Reason: ITCHING Last Admin: 01/08/18 10:26 Dose: 50 mg Docusate Sodium (Colace Cap*) 100 mg PO BID PRN PRN Reason: CONSTIPATION Last Admin: 01/06/18 13:01 Dose: 100 mg Famotidine (Pepcid Iv*) 20 mg IV SLOW PU BID [facility] Last Admin: 01/08/18 08:51 Dose: 20 mg Heparin Sodium (Porcine) (Heparin Vial(*)) 5,000 units SUBCUT Q8HR [facility] Last Admin: 01/08/18 13:43 Dose: 5,000 units Hydrocortisone (Hytone Cream 1%*) 1 applic TOPICAL TID [facility] Last Admin: 01/08/18 13:44 Dose: 1 applic Ceftriaxone Sodium 1 gm/ (Sodium Chloride) 50 mls @ 200 mls/hr IVPB Q24H [facility] Last Admin: 01/08/18 08:53 Dose: 200 mls/hr Insulin Glargine (Lantus(*)) 20 units SUBCUT Q24H [facility] Last Admin: 01/08/18 08:46 Dose: 20 unit Insulin Human Lispro (Humalog*) 0 units SUBCUT [facility]; Protocol Last Admin: 01/08/18 17:26 Dose: 3 units Magnesium Hydroxide (Milk Of Magnesia Liq*) 30 ml PO Q6H PRN PRN Reason: CONSTIPATION Morphine Sulfate (Morphine Vial*) 1 mg IV Q1H PRN PRN Reason: PAIN Last Admin: 01/04/18 17:57 Dose: 1 mg Ondansetron HCl (Zofran Inj*) 4 mg IV Q6H PRN PRN Reason: NAUSEA Polyethylene Glycol/Electrolytes (Miralax*) 17 gm PO 0800,2100 [facility] Last Admin: 01/08/18 08:55 Dose: 17 gm Tramadol HCl (Ultram*) 50 mg PO Q8H PRN PRN Reason: PAIN Last Admin: 01/07/18 14:26 Dose: 50 mg Vital Signs - 8 hr 01/08/18 01/08/18 01/08/18 10:26 11:10 11:27 Temperature 97.9 F Pulse Rate 79 Respiratory 20 16 Rate Blood Pressure 120/74 103/57 (mmHg) O2 Sat by Pulse 100 Oximetry 01/08/18 01/08/18 01/08/18 12:37 15:47 16:00 Temperature 98.5 F Pulse Rate 80 Respiratory 16 18 Rate Blood Pressure 97/55 (mmHg) O2 Sat by Pulse 99 99 Oximetry Oxygen Devices in Use Now: None Appearance: Pleasant lady lying in bed in [facility]. Eyes: No Scleral Icterus Ears/Nose/Mouth/Throat: Mucous Membranes Moist Neck: Trachea Midline Respiratory: Symmetrical Chest Expansion and Respiratory Effort, Clear to Auscultation Cardiovascular: RRR - Normal S1 and S2 Abdominal: NL Sounds; No Tenderness; No Distention Extremities: No Edema Skin: - - Maculo papular rash on arms, trunk and thighs Neurological: Alert and Oriented x 3, NL Muscle Strength and Tone - Left foot drop Result Diagrams: 01/08/18 05:41 01/08/18 05:41 Assess/Plan/Problems-Billing Assessment: 62 yo F with h/o Acute promyelocytic leukemia dx in 2000 (pt at that point was in [facility] and subsequently developed CVA and AMI and cardiomyopathy) -now in remission, DM2, presents with L1 burst fx after a fall in 09/2017 and left foot drop - Patient Problems (1) Rash Comment: - Morbiliforme rash suggestive of drug reaction - Hydrocodone and Metoprolol are new medications. Heparin recently ordered but had not yet been given when rash noted. - Will d/c Metoprolol for now and monitor. - Continue Benadryl, Famotidine, and hydrocortisone cream. - Avoid systemic steroids in the setting of recent spinal surgery and diabetes. (2) Sepsis Comment: - Developed sepsis with fever and leukocytosis. - Source is UTI. (3) UTI (urinary tract infection) Comment: - UA is abnormal - start Ceftriaxone and follow urine culture. - LA is normal and VSS are stable. (4) Lumbar burst fracture Comment: - S/p T11-L3 arthrodesis 01/03/[address] Wang - complex surgery - management as per Neurosurgery. - Continue PT with TLSO in place. Awaiting AFO. (5) DM2 (diabetes mellitus, type 2) Comment: - Continue Lantus 20 units and Lispro SS. (6) Leukemia in remission Comment: - Dr Torres d/w Dr. Aparicio - pt has been in remission for >10 years and her CBC does not indicate any recurrence. - Pt has h/o CV[place] when in [facility] in the acute stage of the disease in 2000. (7) DVT prophylaxis Comment: - SQ heparin/SCDs. (8) Full code status Status and Disposition: Inpatient
[2018-01-08] MEDS: NS 0.9% 1000 ML* 1,000 ML IV SCH (17:59)
[2018-01-08] MEDS: HYDROcodone/ACETAMIN 5-325 MG* 1 TAB PO PRN (20:47)
[2018-01-09] MEDS: NS 0.9% 1000 ML* 1,000 ML IV SCH (03:54)
[2018-01-09 05:42] LABS: ABS Basophils 0 10^3/ul (0-0.2); ABS Eosinophils 0.5 10^3/ul (0-0.6); ABS Lymphocytes 1.9 10^3/ul (1.0-4.8); ABS Monocytes 0.6 10^3/ul (0-0.8); ABS Neutrophils 10.5 10^3/ul (1.5-7.7); ABS Nucleated RBC 0 10^3/ul; Eosinophil % 3.5 % (0-6); Hematocrit 26 % (35-47); Hemoglobin 8.7 g/dl (12.0-16.0); Lymphocyte % 14.1 % (25-47); Mean Corpuscular HGB Conc 33 g/dl (31-36); Mean Corpuscular Hemoglobin 26 pg (27-31); Mean Corpuscular Volume 79 fL (80-97); Mean Platelet Volume 8.4 um3 (7.4-10.4); Nucleated Red Blood Cells % 0; Platelet Count 249 10^3/ul (150-450); Red Blood Count 3.32 10^6/ul (4.00-5.40); Red Cell Distribution Width 14 % (10.5-15); White Blood Count 13.5 10^3/ul (3.5-10.8)
[2018-01-09 06:03] LABS: EGFR Non-African American 138.1 (>60)
[2018-01-09] MEDS: Heparin VIAL(*) 5000 UNITS/ML VIAL (FIVE THOUSAND) SUBCUT SCH ×3 (06:05→21:30)
[2018-01-09] MEDS ORDERED: diPHENhydraMINE IV* 50 MG/ML 1 ml VIAL (BENADRYL) SLOW PUSH SCH (09:00)
[2018-01-09] MEDS: diPHENhydraMINE PO* 50 MG PO SCH ×3 (09:02→21:08)
[2018-01-09] MEDS: Polyethylene Glycol 3350* 17 GM PACKET PO SCH ×2 (09:02→21:08)
[2018-01-09] MEDS: Insulin LISPRO* 1 UNITS UNIT SUBCUT SCH ×4 (09:03→21:00)
[2018-01-09] MEDS: cefTRIAXone(*) 1 GM in NS 0.9% 50 ML* 50 ML IVPB SCH (09:03)
[2018-01-09] MEDS: Insulin GLARGINE(*) 1 UNITS UNIT SUBCUT SCH (09:03)
[2018-01-09] MEDS: Famotidine IV* 10 MG/ML 2 ML (20 mg) IV SLOW PU SCH ×2 (09:03→21:15)
[2018-01-09] MEDS: Hydrocortisone 1% CREAM* 30 GM TUBE TOPICAL SCH ×3 (09:15→21:18)
--- NOTE | 2018-01-09 12:22 | PN ---
Subjective Date of Service: 01/09/18 Interval History: HOSPITALIST PROGRESS NOTE Patient seen and examined at bedside. Care reviewed and d/w Bev Reich RN. She feels better today, in good spirits. Pain is controlled, rash is subsiding and less itchy. No fever over the past 24h. Tolerating diet well with no N/V. Family History: Unchanged from Admission Social History: Unchanged from Admission Past Medical History: Unchanged from Admission Objective Active Medications: Acetaminophen (Tylenol Tab*) 650 mg PO Q4H PRN PRN Reason: FEVER/PAIN Last Admin: 01/08/18 18:01 Dose: 650 mg Hydrocodone Bitart/Acetaminophen ([place] 5-325 Tab*) 1 tab PO Q4H PRN PRN Reason: moderate pain Last Admin: 01/08/18 20:47 Dose: 1 tab Hydrocodone Bitart/Acetaminophen ([place] 5-325 Tab*) 2 tab PO Q4H PRN PRN Reason: marked pain Last Admin: 01/06/18 14:40 Dose: 2 tab Atorvastatin Calcium (Lipitor*) 10 mg PO 1700 [facility], [facility] Last Admin: 01/08/18 17:19 Dose: 10 mg Dextrose (D50w Syringe 50 Ml*) 12.5 gm IV PUSH .FOR FS < 60 - SS PRN PRN Reason: FS < 60 Diphenhydramine HCl (Benadryl Po*) 50 mg PO Q6H [facility], [facility] Last Admin: 01/09/18 09:02 Dose: 50 mg Docusate Sodium (Colace Cap*) 100 mg PO BID PRN PRN Reason: CONSTIPATION Last Admin: 01/06/18 13:01 Dose: 100 mg Famotidine (Pepcid Iv*) 20 mg IV SLOW PU BID FOR[facility], [facility] Last Admin: 01/09/18 09:03 Dose: 20 mg Heparin Sodium (Porcine) (Heparin Vial(*)) 5,000 units SUBCUT Q8HR FOR[facility], [facility] Last Admin: 01/09/18 06:05 Dose: 5,000 units Hydrocortisone (Hytone Cream 1%*) 1 applic TOPICAL TID FOR[facility]LY [facility], [facility] Last Admin: 01/09/18 09:15 Dose: 1 applic Ceftriaxone Sodium 1 gm/ (Sodium Chloride) 50 mls @ 200 mls/hr IVPB Q24H [facility], [facility] Last Admin: 01/09/18 09:03 Dose: 200 mls/hr Sodium Chloride (Ns 0.9% 1000 Ml*) 1,000 mls @ 100 mls/hr IV PER RATE FOR[facility]LY [facility], [facility] Last Admin: 01/09/18 03:54 Dose: 100 mls/hr Insulin Glargine (Lantus(*)) 20 units SUBCUT Q24H [facility] Last Admin: 01/09/18 09:03 Dose: 20 unit Insulin Human Lispro (Humalog*) 0 units SUBCUT ACHS FOR[facility], [facility]; Protocol Last Admin: 01/09/18 09:03 Dose: 2 units Magnesium Hydroxide (Milk Of Magnesia Liq*) 30 ml PO Q6H PRN PRN Reason: CONSTIPATION Morphine Sulfate (Morphine Vial*) 1 mg IV Q1H PRN PRN Reason: PAIN Last Admin: 01/04/18 17:57 Dose: 1 mg Ondansetron HCl (Zofran Inj*) 4 mg IV Q6H PRN PRN Reason: NAUSEA Last Admin: 01/08/18 20:43 Dose: 4 mg Polyethylene Glycol/Electrolytes (Miralax*) 17 gm PO 0800,2100 [facility] Last Admin: 01/09/18 09:02 Dose: 17 gm Tramadol HCl (Ultram*) 50 mg PO Q8H PRN PRN Reason: PAIN Last Admin: 01/07/18 14:26 Dose: 50 mg Vital Signs - 8 hr 01/09/18 01/09/18 01/09/18 07:14 08:00 09:02 Temperature 98.9 F Pulse Rate 83 Respiratory 16 16 16 Rate Blood Pressure 117/63 (mmHg) O2 Sat by Pulse 100 100 Oximetry Oxygen Devices in Use Now: None Appearance: Pleasant lady lying in bed in [facility]. Eyes: No Scleral Icterus Ears/Nose/Mouth/Throat: Mucous Membranes Moist Neck: Trachea Midline Respiratory: Symmetrical Chest Expansion and Respiratory Effort, Clear to Auscultation Cardiovascular: RRR - Normal S1 and S2 Abdominal: NL Sounds; No Tenderness; No Distention Extremities: No Edema Skin: - - Maculopapular rash is less evident today, but still present Neurological: Alert and Oriented x 3, NL Muscle Strength and Tone - with left foot drop Result Diagrams: 01/09/18 05:28 01/09/18 05:28 Assess/Plan/Problems-Billing Assessment: 62 yo F with h/o Acute promyelocytic leukemia dx in 2000 (pt at that point was in [facility] and subsequently developed CVA and AMI and cardiomyopathy) -now in remission, DM2, presents with L1 burst fx after a fall in 09/2017 and left foot drop - Patient Problems (1) Rash Comment: - Improving. - Morbiliforme rash suggestive of drug reaction - Hydrocodone and Metoprolol are new medications. Heparin recently ordered but had not yet been given when rash noted. - Will d/c Metoprolol for now and monitor. - Continue Benadryl, Famotidine, and hydrocortisone cream. - Avoid systemic steroids in the setting of recent spinal surgery and diabetes. (2) Sepsis Comment: - Developed sepsis with fever and leukocytosis. - Source is UTI. (3) Lumbar burst fracture Comment: - S/p T11-L3 arthrodesis 01/03/[address] Wang - complex surgery - management as per Neurosurgery. - Continue PT with TLSO in place. Awaiting AFO. (4) UTI (urinary tract infection) Comment: - UA is abnormal - continue Ceftriaxone. - Urine culture is growing E. coli, sensitivity pending. - LA is normal and VSS are stable. (5) DM2 (diabetes mellitus, type 2) Comment: - Well controlled. - Continue Lantus 20 units and Lispro SS. (6) Leukemia in remission Comment: - Dr Torres d/w Dr. Aparicio - pt has been in remission for >10 years and her CBC does not indicate any recurrence. - Pt has h/o CVA/LA when in [facility] in the acute stage of the disease in 2000. (7) DVT prophylaxis Comment: - SQ heparin/SCDs. (8) Full code status Status and Disposition: Inpatient
[2018-01-09] MEDS: Acetaminophen TAB* 325 MG PO PRN (16:01)
[2018-01-09] MEDS: Atorvastatin* 10 MG TAB PO SCH (17:48)
[2018-01-09] MEDS: traMADol TAB* 50 MG PO PRN (17:59)
--- NOTE | 2018-01-09 19:00 | PN ---
Progress Note - Progress Note Date of Service: 01/09/18 SOAP: Subjective: []No events ON . Patient resting comfortably. On regular floor. Ambulated with brace yesterday and today. Voids. BM. Tolerates PO well. Objective: []VSS, Afebrile. Wound s,c,d. AAOx3, MADAN, CN II -XII grossly intact. Motor 4-5/5 except RLE 4-/5, LLE HF, KE 3/4, FDF, EHL 0/5, PF 3/5 Sensory grossly intact to light touch. Assessment: []62 yof POD#6 T11-L3 arthrodesis for L1 fracture. Plan: [] Monitor VS, Neurochecks. DVT prophylaxis. IS PT /OT , AFO TLSO brace when OOB. Nutrition consult. On Abx for UTI DC planning. Appreciate IM care. Reese Wang MD
[2018-01-10] MEDS: diPHENhydraMINE PO* 50 MG PO SCH ×2 (02:50→08:21)
[2018-01-10] MEDS: Heparin VIAL(*) 5000 UNITS/ML VIAL (FIVE THOUSAND) SUBCUT SCH (05:31)
[2018-01-10] MEDS: Insulin LISPRO* 1 UNITS UNIT SUBCUT SCH ×2 (07:53→12:47)
[2018-01-10] MEDS: cefTRIAXone(*) 1 GM in NS 0.9% 50 ML* 50 ML IVPB SCH (08:20)
[2018-01-10] MEDS: Acetaminophen TAB* 325 MG PO PRN (08:21)
[2018-01-10] MEDS: Famotidine IV* 10 MG/ML 2 ML (20 mg) IV SLOW PU SCH (08:21)
[2018-01-10] MEDS: Polyethylene Glycol 3350* 17 GM PACKET PO SCH (08:22)
[2018-01-10] MEDS: Insulin GLARGINE(*) 1 UNITS UNIT SUBCUT SCH (08:23)
[2018-01-10] MEDS ORDERED: HYDROCORTISONE 1% TOPICAL SCH (09:00)
[2018-01-10 09:07] LABS: ABS Basophils 0 10^3/ul (0-0.2); ABS Eosinophils 0.5 10^3/ul (0-0.6); ABS Lymphocytes 2.6 10^3/ul (1.0-4.8); ABS Monocytes 0.6 10^3/ul (0-0.8); ABS Neutrophils 5.3 10^3/ul (1.5-7.7); ABS Nucleated RBC 0 10^3/ul; Eosinophil % 5.5 % (0-6); Hematocrit 26 % (35-47); Hemoglobin 8.6 g/dl (12.0-16.0); Lymphocyte % 28.8 % (25-47); Mean Corpuscular HGB Conc 33 g/dl (31-36); Mean Corpuscular Hemoglobin 26 pg (27-31); Mean Corpuscular Volume 79 fL (80-97); Mean Platelet Volume 8.5 um3 (7.4-10.4); Nucleated Red Blood Cells % 0.1; Platelet Count 280 10^3/ul (150-450); Red Blood Count 3.31 10^6/ul (4.00-5.40); Red Cell Distribution Width 14 % (10.5-15)
[2018-01-10 09:18] LABS: EGFR Non-African American 134.7 (>60)
[2018-01-10] MEDS ORDERED: Potassium Chlor TAB* 20 MEQ TAB.ER PO ONE (09:38)
[2018-01-10 11:37] VITALS: BP 130/65
[2018-01-10] MEDS: traMADol TAB* 50 MG PO PRN (12:23)
--- NOTE | 2018-01-11 12:30 | DS ---
CC: Dr. Ch; Dr. Wang; Dr. Pizarro at [facility] * DISCHARGE SUMMARY: DATE OF ADMISSION: 12/30/17 DATE OF DISCHARGE: 01/10/18 PRIMARY CARE PROVIDER: Dr. Ch. NEUROSURGEON: Dr. Wang. DISCHARGE DIAGNOSES: 1. L1 burst fracture, status post T11-L3 arthrodesis, 01/03/18. 2. Escherichia coli urinary tract infection. 3. Sepsis, secondary to the above. 4. Rash, secondary to allergic reaction, but unclear source. SECONDARY DIAGNOSES: 1. 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 2. Type 2 diabetes. MEDICATIONS AT THE TIME OF TRANSFER: Medication list: 1. Acetaminophen 650 mg p.o. q.6 hours p.o. p.r.n. fever. 2. Atorvastatin 10 mg p.o. daily. 3. Ceftriaxone 1 g IV daily. 4. Benadryl 25 mg p.o. q.6 hours. 5. Colace 100 mg p.o. b.i.d. 6. Famotidine 20 mg p.o. b.i.d. 7. Heparin 5000 units subcutaneously q.8 hours. 8. Hydrocodone/acetaminophen 5/325 mg 1 to 2 tablets p.o. q.4 hours p.r.n. pain. 9. Lantus 20 units subcutaneously daily. 10. Lispro sliding scale. 11. Milk of magnesia 30 mL p.o. q.6 hours p.r.n. constipation. 12. MiraLax 17 g p.o. daily. 13. Senna 2 tablets p.o. at bedtime as needed for constipation. 14. Tramadol 50 mg p.o. q.6 hours p.r.n. pain. HOSPITAL COURSE: Mrs. Patten is a 62-year-old lady with a past medical history as stated above that presented to the emergency room with complaints of falls and left lower extremity numbness. The patient had an accident while she was visiting her family in [facility] where bags of rice fell on her. This happened in September. She was seen by a physician and told to use a brace and the function in her leg would return in 2 to 3 weeks, but this did not happen. [place] the [place] and was evaluated by Neurosurgery, found to have a L1 burst fracture. For more details about her presentation, I refer you to her history and physical. Due to the patient's comorbidities, she was admitted to the medical service and she was optimized for surgery. MRI of the lumbar spine showed deformity of L1 with approximately 50% loss of height anteriorly. Retropulsion caused moderate canal narrowing with an associated cord compression and central myelopathic cord signal abnormality concerning for traumatic cord edema. As the patient had a history of [facility] when she had her acute leukemia, an echocardiogram was performed and it showed ejection fraction of 40% to 45% with focal wall motion abnormality. Her ejection fraction actually was improved from her prior echo from 2000. The patient was thought to be optimized for surgery and on 01/03/18, she went to the OR where she had T11 through L3 posterolateral arthrodesis with T11, T12 , L2, and L3 pedicle screw placement with laminectomies for the compression, T12 , L1, and L2 with left transpedicular decompression at L1. The patient did well on the postoperative treatment, but she did develop a maculopapular rash. The new medication that had been added was metoprolol and this was discontinued. The patient was treated with Benadryl, famotidine, and steroid cream with significant improvement, but I do not have enough information to justify that this was a beta-riri allergy. The patient also developed low-grade fever, leukocytosis, and was found to have a normal urinalysis. Urinary culture grew E. coli and the patient was started on ceftriaxone empirically. She had improvement of her symptoms, but culture result is pending at the time of this dictation and she will be followed at [facility]. The patient had improvement of her symptoms, but do have a left footdrop. Recommendation is for ambulation with a TLSO and an AFO, and to continue rehab. PHYSICAL EXAMINATION: Vital Signs: Temperature 98.1, heart rate 67, respiratory rate 17, oxygen saturation 98% on room air, blood pressure is 130/ 65. General: The patient is a pleasant lady, lying in bed, in no acute distress. CVS: Normal S1, S2. Regular rate and rhythm. Chest: Breath sounds bilaterally with no added sounds. Skin: Faint maculopapular rash. Neuro: She is alert and oriented x3. Able to move all 4 extremities, has a left footdrop. DIET: Consistent carb diet. ACTIVITIES: As tolerated. DISPOSITION: To RU. STATUS WHILE IN THE HOSPITAL: Inpatient. Please keep in mind this is a summarized version of this patient's hospital stay. If you need more information, please feel free to call me at [phone] or please obtain full medical records. TIME SPENT: Approximately 45 minutes was spent to complete this discharge. [id number]/[facility] #: [id number] ELICIA
== END 2018-01-10 13:53 | DRG 304 ==
LOC: ED 11:50 → SSU 22:01 → OBSVTOIN 12-30 10:34 → ICU 01-03 18:57 → SSU 01-05 18:39
PROVIDERS: ADMIT Hospitalist; ATTEND Internal Medicine
PROC: 0SG1071 Fusion of 2 or more Lumbar Vertebral Joints with Autologous Tissue Substitute, Posterior Approach, Posterior Column, Open Approach (ICD-10-PCS; 2018-01-03)
PROC: 4A11X4G Monitoring of Peripheral Nervous Electrical Activity, Intraoperative, External Approach (ICD-10-PCS; 2018-01-03)
PROC: 8E0WXBF Computer Assisted Procedure of Trunk Region, With Fluoroscopy (ICD-10-PCS; 2018-01-03)
PROC: 0RGA071 Fusion of Thoracolumbar Vertebral Joint with Autologous Tissue Substitute, Posterior Approach, Posterior Column, Open Approach (ICD-10-PCS; 2018-01-03)
PROC: 01N80ZZ Release Thoracic Nerve, Open Approach (ICD-10-PCS; 2018-01-03)
PROC: 01NB0ZZ Release Lumbar Nerve, Open Approach (ICD-10-PCS; 2018-01-03)
PROC: 0RG6071 Fusion of Thoracic Vertebral Joint with Autologous Tissue Substitute, Posterior Approach, Posterior Column, Open Approach (ICD-10-PCS; principal; 2018-01-03 09:45)
DX: S32.011A Stable burst fracture of first lumbar vertebra, initial encounter for closed fracture (principal); S34.01XA Concussion and edema of lumbar spinal cord, initial encounter; A41.9 Sepsis, unspecified organism; N39.0 Urinary tract infection, site not specified; C92.41 Acute promyelocytic leukemia, in remission; I42.9 Cardiomyopathy, unspecified; I69.354 Hemiplegia and hemiparesis following cerebral infarction affecting left non-dominant side; G95.20 Unspecified cord compression; R21 Rash and other nonspecific skin eruption; M21.372 Foot drop, left foot; R29.6 Repeated falls; E78.5 Hyperlipidemia, unspecified; I10 Essential (primary) hypertension; E11.36 Type 2 diabetes mellitus with diabetic cataract; W20.8XXA Other cause of strike by thrown, projected or falling object, initial encounter; I08.1 Rheumatic disorders of both mitral and tricuspid valves; B96.20 Unspecified Escherichia coli [E. coli] as the cause of diseases classified elsewhere; T78.40XA Allergy, unspecified, initial encounter; M48.062 Spinal stenosis, lumbar region with neurogenic claudication; Z82.49 Family history of ischemic heart disease and other diseases of the circulatory system; Y92.9 Unspecified place or not applicable; Z79.01 Long term (current) use of anticoagulants; Z79.4 Long term (current) use of insulin; I25.2 Old myocardial infarction
CPT/HCPCS: 36415; 36620; 70450; 71046; 72070; 72100; 72125; 72131; 72148; 72190; 72192; 76001; 80048; 80053; 81003; 81015; 83605; 85025; 85610; 86140; 86850; 86900; 86901; 87077; 87086; 87184; 87186; 93005; 93306; 97530; 99283; A9270-GY; C1713; C1776; G8987-GO-CL; G8988-GO-CI; J0330; J0690; J0696; J1100; J1170; J1200; J1644; J1885; J2250; J2270; J2405; J2704; J2710; J3010; J3370

== ENCOUNTER 2018-01-10 10:18 | Inpatient (IN) | payer OTHER ==
[2018-01-10] MEDS ORDERED: Magnesium Hydroxide LIQ* 30 ML UDC PO PRN (13:53)
[2018-01-10] MEDS ORDERED: Acetaminophen TAB* 325 MG PO PRN (13:53)
[2018-01-10] MEDS ORDERED: Senna TAB PO PRN (13:53)
[2018-01-10] MEDS ORDERED: Dextrose 50% Syringe 50 ML* 25 GM/50 ML SYRINGE IV PUSH PRN (14:03)
[2018-01-10] MEDS: diPHENhydraMINE PO* 25 MG PO SCH ×2 (16:02→20:56)
[2018-01-10] MEDS: Heparin VIAL(*) 5000 UNITS/ML VIAL (FIVE THOUSAND) SUBCUT SCH ×2 (16:02→22:48)
[2018-01-10] MEDS: Insulin LISPRO* 1 UNITS UNIT SUBCUT SCH ×2 (16:51→21:19)
[2018-01-10] MEDS: Atorvastatin* 20 MG TAB PO SCH (17:28)
[2018-01-10] MEDS: traMADol TAB* 50 MG PO PRN (18:39)
[2018-01-10] MEDS: Docusate CAP* 100 MG PO SCH (20:55)
[2018-01-10] MEDS: Famotidine TAB* 20 MG PO SCH (20:56)
[2018-01-10] MEDS: HYDROcodone/ACETAMIN 5-325 MG* 1 TAB PO PRN (21:19)
--- NOTE | 2018-01-10 23:10 | HP ---
HISTORY AND PHYSICAL: DATE OF ADMISSION: 01/10/18 REASON FOR ADMISSION: L1 compression fracture with left leg weakness. HISTORY OF ILLNESS: Cheryl Patten is a 62-year-old [place] woman, who speaks very little Barbadian. She has a medical history significant for diabetes as well as having had a stroke. The patient was in [facility] this summer. Apparently, in September, a 100-pound bag of rice fell on her. She following that had significant pain in her back. She sought medical care in [facility]. She was put in a TLSO brace. The patient had difficulty with left-sided footdrop since the incident. She came back to this country and saw her doctor, who ordered a CAT scan of her lumbar spine. The CAT scan showed L1 fracture with retropulsion into the spinal canal. The patient was referred to the emergency room. She had an MRI of her lumbar spine that night again showing the L1 burst fracture with retropulsion. Moderate canal narrowing was seen with associated cord compression and central myelopathic cord signal abnormality. Neurosurgery was consulted. She was kept on bedrest. It was felt the patient would need operative repair. She underwent T11 through L3 posterolateral arthrodesis with T11, T12, L2, and L3 pedicle screw placement. Postop, she had a lot of difficulty with left-sided footdrop, which had been present prior. An AFO has been ordered. The patient has her TLSO brace, which she needs when she is out of bed. The patient also had an elevated white blood cell count with a urinalysis suggestive of a UTI. She was started on IV ceftriaxone. The patient was felt to have physical therapy and occupational therapy needs. She is now being admitted for inpatient rehab so she might return to independent living. PAST MEDICAL HISTORY: Significant for diabetes. She also has a history of a previous stroke with left-sided weakness. She has a history of hypertension and hyperlipidemia. CURRENT MEDICATIONS: Include: 1. Lipitor. 2. Lantus insulin. 3. Lispro insulin. She is on tramadol and Pepcid. The patient was also put on Benadryl because she developed a drug rash. It was felt her metoprolol might have caused the rash, although it is not clear. ALLERGIES: The patient has no known drug allergies. SOCIAL HISTORY: She is a nonsmoker, nondrinker. She lives in a 2-level house with her son. REVIEW OF SYSTEMS: The patient reports no current shortness of breath or chest pain. PHYSICAL EXAMINATION VITAL SIGNS: The patient's temperature is 98.1, blood pressure is 124/56, pulse 71, respirations 18. HEENT: Her extraocular movements appeared to be intact. Tongue is midline. NECK: Supple. LUNGS: Sounded clear to auscultation bilaterally. HEART: Sounds were regular. S1, S2 audible. ABDOMEN: Soft and nontender. BACK: Her back has a wound from a recent back surgery, looks clean and dry. EXTREMITIES: She has slightly decreased tone in her left leg. NEUROLOGIC: Sensation may be diminished in her feet and her left leg. She has no dorsiflexion on the left foot. Plantarflexion is 1-2/5. Quadriceps and hamstrings appeared to be 4/5 on the left side. FUNCTIONAL EXAM: The patient transfers with mod to max assist. ASSESSMENT: L1 burst fracture since September 2017 with cord compression and left leg weakness. Bowel and bladder appeared to have been spared. PLAN: Our plan is integrate her into a comprehensive and therapeutic rehab program with the following goals: 1. Physical Therapy will work with the patient. They are going to work on functional transfer training, ambulation training, wheelchair mobilities. 2. Occupational Therapy will see the patient, work on her activities of daily living including toileting and toilet transfers. 3. Heparin for DVT prophylaxis. 4. For her diabetes, we are going to continue her on Lantus insulin with lispro sliding scale insulin coverage. 5. For her drug rash, we will continue Benadryl, although rash appears to be fading. 6. Continue Lipitor for stroke prophylaxis. She will probably have to restart aspirin at some point. 7. Continue ceftriaxone for urinary tract infection. Await final culture results. 8. clinical services assistant will be closely involved to make sure that any services and equipment the patient requires are in place prior to discharge. 9. Family training as appropriate. 10. Home with appropriate services. ESTIMATED LENGTH OF STAY: 10 to 14 days. [id number]/[facility] #: [id number] ELICIA
[2018-01-11] MEDS: diPHENhydraMINE PO* 25 MG PO SCH ×4 (03:30→20:04)
[2018-01-11 05:11] LABS: ABS Basophils 0 10^3/ul (0-0.2); ABS Eosinophils 0.5 10^3/ul (0-0.6); ABS Lymphocytes 2.9 10^3/ul (1.0-4.8); ABS Monocytes 0.6 10^3/ul (0-0.8); ABS Neutrophils 3.9 10^3/ul (1.5-7.7); ABS Nucleated RBC 0 10^3/ul; Eosinophil % 5.9 % (0-6); Hematocrit 25 % (35-47); Hemoglobin 8.4 g/dl (12.0-16.0); Lymphocyte % 36.6 % (25-47); Mean Corpuscular HGB Conc 33 g/dl (31-36); Mean Corpuscular Hemoglobin 26 pg (27-31); Mean Corpuscular Volume 79 fL (80-97); Mean Platelet Volume 8.1 um3 (7.4-10.4); Nucleated Red Blood Cells % 0.1; Platelet Count 288 10^3/ul (150-450); Red Blood Count 3.21 10^6/ul (4.00-5.40); Red Cell Distribution Width 14 % (10.5-15); White Blood Count 7.8 10^3/ul (3.5-10.8)
[2018-01-11] MEDS: Heparin VIAL(*) 5000 UNITS/ML VIAL (FIVE THOUSAND) SUBCUT SCH ×3 (05:18→21:37)
[2018-01-11 05:27] LABS: EGFR Non-African American 153.4 (>60)
[2018-01-11] MEDS: HYDROcodone/ACETAMIN 5-325 MG* 1 TAB PO PRN ×3 (08:49→20:02)
[2018-01-11] MEDS: Insulin GLARGINE(*) 1 UNITS UNIT SUBCUT SCH (08:51)
[2018-01-11] MEDS: Famotidine TAB* 20 MG PO SCH ×2 (08:53→20:03)
[2018-01-11] MEDS: Polyethylene Glycol 3350* 17 GM PACKET PO SCH (08:54)
[2018-01-11] MEDS: Docusate CAP* 100 MG PO SCH ×2 (08:54→20:04)
[2018-01-11] MEDS: Insulin LISPRO* 1 UNITS UNIT SUBCUT SCH ×4 (09:00→21:35)
[2018-01-11] MEDS ORDERED: cefTRIAXone(*) 1 GM in NS 0.9% 50 ML* 50 ML IVPB SCH (09:00)
[2018-01-11] MEDS ORDERED: Ciprofloxacin TAB* 250 MG PO ONE (10:22)
--- NOTE | 2018-01-11 12:50 | PMRUTEAM ---
PMRU: Team Meeting Current Status: Nursing: Current Status Skin Deviations [Back] Incision Skin Deviation Description [ drsgs in place Back] Physical Therapy: Current Status Bed Mobility Assistance Min Assist Transfer Moblility Assistance Supervision,Contact Guard Assist Transfer/Bed Mobility Rolling Walker Recommended Devices Ambulation Assistance Supervision,Contact Guard Assist Ambulation Assistive Devices Rolling Walker Number of Feet Patient 110' x 2 Ambulated Ambulation Comment Modified reciprocal with narrow DORIAN Stairs Assistance Contact Guard Assist Stairs Recommended Devices NT Number of Stairs 0 Curb Not Tested Occupational Therapy: Current Status Upper Body Dressing Min Assist Lower Body Dressing Min Assist Bathing Min Assist Toileting Contact Guard Assist Toilet Transfer Contact Guard Assist Shower Transfer Contact Guard Assist Eating Independent Goals: Physical Therapy: Initial Goals Bed Mobility Assistance Independent Transfer Mobility Assistance Independent Transfer/Bed Mobility Rolling Walker Recommended Devices Ambulation Independent Ambulation Recommended Devices Rolling Walker Stairs Assistance Supervision Stair Recommended Devices Two Rails Number of Stairs 6 Home Exercise Program Independent Assistance Physical Therapy: Updated Goals Bed Mobility Assistance Independent Transfer Mobility Assistance Independent Transfer/Bed Mobility Rolling Walker Recommended Devices Ambulation Assistance Independent Ambulation Assistive Devices Rolling Walker Ambulation Distance (ft) 150 Stairs Assistance Supervision Stairs Recommended Devices Two Rails Number of Stairs 6 Occupational Therapy: Initial Goals Goals to be Completed in (Days 3-5 days ) Upper Body Bathing Routine Modified Independent with Lower Body Bathing Routine Modified Independent with Upper Body Dressing Routine Independent Lower Body Dressing Routine Independent Toilet Hygeine and Clothing Modified Independent with Management Routine Toilet Transfer Routine Modified Independent with Tub Transfer Routine Modified Independent with Functional Transfers for ADL Modified Independent with Grooming Routine Independent Feeding Routine Independent Light Housekeeping Tasks Modified Independent with Care Plan: Care Plan ADL's - Improve/Maintain Start: 01/11/18 10:53 Freq: DAILY Status: Active Target: Protocol: Activity Type Activity Date Activity User E-Sign Co-Sign Detail Recorded Client Recorded Date Recorded By Document 01/11/18 10:53 [id number] 01/11/18 10:54 [id number] 01/11/18 10:53 [facility] Outcome: ADL's/ADL Transfers Orders/Interventions Occupational Therapy Evaluation & Treatment Device Yes Patient to receive OT 5x/wk for 60-120 Therex min/day Self Care Management Group Therapy Neuromuscular ReEducation UE/LE ADL's with Assist Yes ADL Transfers with Assist Yes Toileting: Transfers,Clothing Management Yes ,Hygeine w/Assist Light Kitchen/Laundry w/Assist Yes Progression Toward Outcome/Goals Progressing Coping/Psych-Improve/Maintain Start: 01/10/18 15:18 Freq: QSHIFT Status: Active Target: Protocol: Activity Type Activity Date Activity User E-Sign Co-Sign Detail Recorded Client Recorded Date Recorded By Document 01/11/18 00:27 [id number] 01/11/18 00:27 [id number] 01/11/18 00:27 [facility] Outcome: Coping/Psychosocial Coping Outcome/Goals Verbalization of Acceptance of Rehab Admit Psychosocial Outcome/Goals Cooperate/ Participate in Plan Progression Toward Outcome/Goals - Progressing Coping Progression Toward Outcome/Goals - Progressing Psychosocial DVT Prophylaxis- Improve/Maintain Start: 01/10/18 15:18 Freq: QSHIFT Status: Active Target: Protocol: Activity Type Activity Date Activity User E-Sign Co-Sign Detail Recorded Client Recorded Date Recorded By Document 01/11/18 00:27 [id number] 01/11/18 00:27 [id number] 01/11/18 00:27 [facility] Outcome: DVT Prophylaxis Outcome/Goals Remains Free of DVT Complies with DVT Prophylaxis /Treatment TEDS Stockings on Every AM, Off at HS Progression Toward Outcome/Goals Progressing Discharge Planning - Improve/Maintain Start: 01/10/18 15:18 Freq: DAILY Status: Active Target: Protocol: Activity Type Activity Date Activity User E-Sign Co-Sign Detail Recorded Client Recorded Date Recorded By Document 01/11/18 00:26 [id number] 01/11/18 00:26 [id number] 01/11/18 00:26 [facility] Outcome: Discharge Planning Update Patient Family No Education-Improve/Maintain Start: 01/10/18 15:18 Freq: QSHIFT Status: Active Target: Protocol: Activity Type Activity Date Activity User E-Sign Co-Sign Detail Recorded Client Recorded Date Recorded By Document 01/11/18 00:27 [id number] 01/11/18 00:27 [id number] 01/11/18 00:27 [facility] Outcome: Education Outcome/Goals Encourage Questions Progression Toward Outcome/Goals Progressing Medication Administration Start: 01/10/18 15:18 Freq: QSHIFT Status: Active Target: Protocol: Activity Type Activity Date Activity User E-Sign Co-Sign Detail Recorded Client Recorded Date Recorded By Document 01/11/18 00:27 [id number] 01/11/18 00:27 [id number] 01/11/18 00:27 [facility] Outcome: Medication Administration Assess Patient Knowledge/Teach Med Yes Education for all Meds Outcome/Goals Family/ Caregiver Administer Medications at Home Progression Towards Outcome/Goals Progressing Is Patient Going Home on Lovenox? No Metabolic Status- Improve/Maintain Start: 01/10/18 15:18 Freq: QSHIFT Status: Active Target: Protocol: Activity Type Activity Date Activity User E-Sign Co-Sign Detail Recorded Client Recorded Date Recorded By Document 01/11/18 00:27 [id number] 01/11/18 00:27 [id number] 01/11/18 00:27 [facility] Outcome: Metabolic Status Have Fingersticks Been Ordered Yes Fingerstick Order Frequency AC & HS Outcome/Goals Maintain/ Improve Metabolic Status Progression Toward Outcome/Goals Progressing Neurological- Improve/Maintain Start: 01/10/18 15:18 Freq: QSHIFT Status: Active Target: Protocol: Activity Type Activity Date Activity User E-Sign Co-Sign Detail Recorded Client Recorded Date Recorded By Document 01/11/18 00:27 [id number] 01/11/18 00:27 [id number] 01/11/18 00:27 [facility] Outcome: Neurological Weakness/Aphasia Weakness Weakness/Aphasia Comment generalized weakness Outcome/Goals Improve Neurological Status Prevent Avoidable Neurological Decline Maintain/ Improve Strength/ROM Progression Toward Outcome/Goals Progressing Pain/Comfort- Improve/Maintain Start: 01/10/18 15:18 Freq: QSHIFT Status: Active Target: Protocol: Activity Type Activity Date Activity User E-Sign Co-Sign Detail Recorded Client Recorded Date Recorded By Document 01/11/18 00:27 [id number] 01/11/18 00:27 [id number] 01/11/18 00:27 [facility] Outcome: Pain/Comfort Outcome/Goals Demonstrates Knowledge and Use of Available Comfort Measures Achieves Acceptable Comfort/Pain Level as Determined by Patient/Condit Maintain Comfort Level Allowing Patient to Fully Participate in Rehab Progression Toward Outcome/Goals Progressing Safety- Improve/Maintain Start: 01/10/18 15:18 Freq: QSHIFT Status: Active Target: Protocol: Activity Type Activity Date Activity User E-Sign Co-Sign Detail Recorded Client Recorded Date Recorded By Document 01/11/18 00:27 [id number] 01/11/18 00:27 [id number] 01/11/18 00:27 [facility] Outcome: Safety Outcome/Goals Remain Free of Injury or Harm Cooperates with Safety Measures for Least Restrictive Environment Prevent Falls/ Injury Progression Toward Outcome/Goals Progressing Skin- Improve/Maintain Start: 01/10/18 15:18 Freq: QSHIFT Status: Active Target: Protocol: Activity Type Activity Date Activity User E-Sign Co-Sign Detail Recorded Client Recorded Date Recorded By Document 01/11/18 00:27 [id number] 01/11/18 00:27 [id number] 01/11/18 00:27 [facility] Outcome: Skin Skin Risk Level Low Skin Orders Dressing Change Outcome/Goals Free from Decubitus Surgical Incisions Healing Progression Toward Outcome/Goals Progressing Medicine Note: Length of Stay: 2 days Anticipated Discharge Destination: Tentative Discharge Date: 01/13/18 Discharged to: home
[2018-01-11] MEDS: Atorvastatin* 20 MG TAB PO SCH (17:02)
[2018-01-11] MEDS: Ciprofloxacin TAB* 250 MG PO SCH (20:03)
--- NOTE | 2018-01-11 20:26 | PN ---
Progress Note Date of Service: 01/11/18 Note: KIMANI ODEN was visited. Therapy notes read and reviewed. She was discussed in interdisciplinary plan of care rounds. She is moving pretty well since she got her AFO Current Medications: Active Medications Generic Name Dose Route Start Last Admin Trade Name Freq PRN Reason Stop Dose Admin Acetaminophen 650 mg 01/10/18 13:53 Tylenol Tab* PO Q6H PRN FEVER/PAIN Hydrocodone Bitart/Acetaminophen 2 tab 01/10/18 14:05 01/11/18 20:02 [place] 5-325 Tab* PO 2 tab Q4H PRN Administration PAIN - SEVERE Hydrocodone Bitart/Acetaminophen 1 tab 01/10/18 14:06 01/11/18 13:10 [place] 5-325 Tab* PO 1 tab Q4H PRN Administration PAIN - MODERATE TO SEVERE Atorvastatin Calcium 20 mg 01/10/18 17:00 01/11/18 17:02 Lipitor* PO 20 mg 1700 SHERYL Administration Ciprofloxacin 250 mg 01/11/18 21:00 01/11/18 20:03 Cipro Tab* PO 250 mg Q12HR SHERYL Administration Dextrose 12.5 gm 01/10/18 14:03 D50w Syringe 50 Ml* IV PUSH .FOR FS < 60 - SS PRN FS < 60 Diphenhydramine HCl 25 mg 01/10/18 15:00 01/11/18 20:04 Benadryl Po* PO 25 mg Q6H SHERYL Administration Docusate Sodium 100 mg 01/10/18 21:00 01/11/18 20:04 Colace Cap* PO 100 mg BID SHERYL Administration Famotidine 20 mg 01/10/18 21:00 01/11/18 20:03 Pepcid Tab* PO 20 mg BID SHERYL Administration Heparin Sodium (Porcine) 5,000 units 01/10/18 14:00 01/11/18 15:00 Heparin Vial(*) SUBCUT 5,000 units Q8HR SHERYL Administration Insulin Glargine 20 units 01/11/18 09:00 01/11/18 08:51 Lantus(*) SUBCUT 20 units Q24H SHERYL Administration Insulin Human Lispro 0 - 15 units 01/10/18 16:30 01/11/18 17:03 Humalog* SUBCUT 3 unit ACHS SHERYL Administration Protocol Magnesium Hydroxide 30 ml 01/10/18 13:53 Milk Of Magnesia Liq* PO Q6H PRN CONSTIPATION Polyethylene Glycol/Electrolytes 17 gm 01/11/18 09:00 01/11/18 08:54 Miralax* PO Not Given DAILY SHERYL Senna 2 tab 01/10/18 13:53 Senokot Tab* PO BEDTIME PRN CONSTIPATION Tramadol HCl 50 mg 01/10/18 14:05 01/10/18 18:39 Ultram* PO 50 mg Q6H PRN Administration PAIN - MODERATE Vital Signs: Vital Signs Temp Pulse Resp BP Pulse Ox 98.0 F 73 18 124/67 100 01/11/18 15:54 01/11/18 15:54 01/11/18 20:04 01/11/18 15:54 01/11/18 15:54 Lab Results: Laboratory Results - last 24 hr 01/10/18 01/11/18 01/11/18 20:56 04:40 04:40 WBC 7.8 RBC 3.21 L Hgb 8.4 L Hct 25 L MCV 79 L MCH 26 L MCHC 33 RDW 14 Plt Count 288 MPV 8.1 Neut % (Auto) 49.2 Lymph % (Auto) 36.6 [place] % (Auto) 7.9 H Eos % (Auto) 5.9 Baso % (Auto) 0.4 Absolute Neuts (auto) 3.9 Absolute Lymphs (auto) 2.9 Absolute Monos (auto) 0.6 Absolute Eos (auto) 0.5 Absolute Basos (auto) 0 Absolute Nucleated RBC 0 Nucleated RBC % 0.1 Sodium 142 Potassium 3.5 Chloride 111 Carbon Dioxide 26 Anion Gap 5 BUN 5 L Creatinine 0.42 L Est GFR ( Amer) 185.6 Est GFR (Non-Af Amer) 153.4 BUN/Creatinine Ratio 11.9 Glucose 73 POC Glucose (mg/dL) 210 H Calcium 7.8 L Total Bilirubin 0.30 AST 58 H ALT 43 Alkaline Phosphatase 195 H Total Protein 4.7 L Albumin 2.3 L Globulin 2.4 Albumin/Globulin Ratio 1.0 01/11/18 01/11/18 01/11/18 08:49 11:55 16:39 WBC RBC Hgb Hct MCV MCH MCHC RDW Plt Count MPV Neut % (Auto) Lymph % (Auto) Knott % (Auto) Eos % (Auto) Baso % (Auto) Absolute Neuts (auto) Absolute Lymphs (auto) Absolute Monos (auto) Absolute Eos (auto) Absolute Basos (auto) Absolute Nucleated RBC Nucleated RBC % Sodium Potassium Chloride Carbon Dioxide Anion Gap BUN Creatinine Est GFR ( Amer) Est GFR (Non-Af Amer) BUN/Creatinine Ratio Glucose POC Glucose (mg/dL) 141 H 170 H 159 H Calcium Total Bilirubin AST ALT Alkaline Phosphatase Total Protein Albumin Globulin Albumin/Globulin Ratio Exam: GENERAL: alert, in no distress LUNGS: clear HEART: reg rhythm ABDOMEN: soft, +BS BACK: wound c/d/i EXTREMITIES: decreased tone LLE NEUROLOGIC: Left leg DF 0/5, PF 2/5, quads and HS 4/5, Hip flexor 4/5 Assessment/Plan: 1. L1 Burst fracture with retropulsion and myelopathy seen on MRI, left footdrop : PT/OT. Left AFO. TLSO When OOB 2. History of CVA: baby ASA 3. DM: Lantus Insulin/SSI 4. UTI with ESBL E. Coli: D/C Ceftriaxone. Cipro 250 BID, day 1/5 5. DVT Prophylaxis: TEDs 6. Advanced Directives: Full Code 01/11/18 20:26
[2018-01-11] MEDS: traMADol TAB* 50 MG PO PRN (23:35)
[2018-01-12] MEDS: diPHENhydraMINE PO* 25 MG PO SCH ×3 (03:36→15:32)
[2018-01-12] MEDS: Heparin VIAL(*) 5000 UNITS/ML VIAL (FIVE THOUSAND) SUBCUT SCH ×3 (06:17→21:16)
[2018-01-12] MEDS: Insulin LISPRO* 1 UNITS UNIT SUBCUT SCH ×4 (07:30→21:16)
[2018-01-12] MEDS: Ciprofloxacin TAB* 250 MG PO SCH ×2 (09:35→21:13)
[2018-01-12] MEDS: Docusate CAP* 100 MG PO SCH ×2 (09:36→21:13)
[2018-01-12] MEDS: HYDROcodone/ACETAMIN 5-325 MG* 1 TAB PO PRN ×3 (09:36→21:12)
[2018-01-12] MEDS: Famotidine TAB* 20 MG PO SCH (09:36)
[2018-01-12] MEDS: Insulin GLARGINE(*) 1 UNITS UNIT SUBCUT SCH (09:37)
[2018-01-12] MEDS: Polyethylene Glycol 3350* 17 GM PACKET PO SCH (10:00)
[2018-01-12] MEDS: Atorvastatin* 20 MG TAB PO SCH (17:22)
[2018-01-12] MEDS: glipiZIDE TAB* 5 MG PO SCH (17:22)
--- NOTE | 2018-01-12 18:37 | PN ---
Progress Note Date of Service: 01/12/18 Note: KIMANI ODEN was visited. Therapy notes read and reviewed. She has been moving well and can get her brace on and off. She seems ready for d/c. She requires positioning in bed for pain relief that cannot be achieved with a standard bed and therefore requires a hospital bed to go home with. Blood sugars still high. Will introduce Glipizide which she has been on as an outpatient. Current Medications: Active Medications Generic Name Dose Route Start Last Admin Trade Name Freq PRN Reason Stop Dose Admin Acetaminophen 650 mg 01/10/18 13:53 Tylenol Tab* PO Q6H PRN FEVER/PAIN Hydrocodone Bitart/Acetaminophen 2 tab 01/10/18 14:05 01/12/18 15:35 [place] 5-325 Tab* PO 2 tab Q4H PRN Administration PAIN - SEVERE Hydrocodone Bitart/Acetaminophen 1 tab 01/10/18 14:06 01/11/18 13:10 [place] 5-325 Tab* PO 1 tab Q4H PRN Administration PAIN - MODERATE TO SEVERE Atorvastatin Calcium 20 mg 01/10/18 17:00 01/12/18 17:22 Lipitor* PO 20 mg 1700 SHERYL Administration Ciprofloxacin 250 mg 01/11/18 21:00 01/12/18 09:35 Cipro Tab* PO 250 mg Q12HR SHERYL Administration Dextrose 12.5 gm 01/10/18 14:03 D50w Syringe 50 Ml* IV PUSH .FOR FS < 60 - SS PRN FS < 60 Diphenhydramine HCl 25 mg 01/10/18 15:00 01/12/18 15:32 Benadryl Po* PO 25 mg Q6H SHERYL Administration Docusate Sodium 100 mg 01/10/18 21:00 01/12/18 09:36 Colace Cap* PO 100 mg BID SHERYL Administration Famotidine 20 mg 01/10/18 21:00 01/12/18 09:36 Pepcid Tab* PO 20 mg BID SHERYL Administration Glipizide 2.5 mg 01/12/18 17:00 01/12/18 17:22 Glucotrol Tab* PO 2.5 mg 0800,1700 SHERYL Administration Heparin Sodium (Porcine) 5,000 units 01/10/18 14:00 01/12/18 15:36 Heparin Vial(*) SUBCUT 5,000 units Q8HR SHERYL Administration Insulin Glargine 20 units 01/11/18 09:00 01/12/18 09:37 Lantus(*) SUBCUT 20 units Q24H SHERYL Administration Insulin Human Lispro 0 - 15 units 01/10/18 16:30 01/12/18 16:42 Humalog* SUBCUT Not Given ACHS SHERYL Protocol Magnesium Hydroxide 30 ml 01/10/18 13:53 Milk Of Magnesia Liq* PO Q6H PRN CONSTIPATION Polyethylene Glycol/Electrolytes 17 gm 01/11/18 09:00 01/12/18 10:00 Miralax* PO Not Given DAILY SHERYL Senna 2 tab 01/10/18 13:53 Senokot Tab* PO BEDTIME PRN CONSTIPATION Tramadol HCl 50 mg 01/10/18 14:05 01/11/18 23:35 Ultram* PO 50 mg Q6H PRN Administration PAIN - MODERATE Vital Signs: Vital Signs Temp Pulse Resp BP Pulse Ox 97.9 F 63 18 131/65 100 01/12/18 15:34 01/12/18 15:34 01/12/18 18:01 01/12/18 15:34 01/12/18 15:43 Lab Results: Laboratory Results - last 24 hr 01/11/18 01/12/18 01/12/18 20:06 07:50 12:09 POC Glucose (mg/dL) 211 H 124 H 234 H 01/12/18 16:34 POC Glucose (mg/dL) 108 H Exam: GENERAL: alert, in no distress LUNGS: clear HEART: reg rhythm ABDOMEN: soft, +BS BACK: wound c/d/i EXTREMITIES: decreased tone LLE with atrophy in left leg below the knee NEUROLOGIC: Left leg DF 0/5, PF 2/5, quads and HS 4/5, Hip flexor 4/5 Assessment/Plan: 1. L1 Burst fracture with retropulsion and myelopathy seen on MRI, left footdrop : S/P Lumbar fusion. PT/OT. Left AFO. TLSO When OOB 2. History of CVA: baby ASA 3. DM: Lantus Insulin/SSI 4. UTI with ESBL E. Coli: D/C Ceftriaxone. Cipro 250 BID, day 2/5 5. DVT Prophylaxis: TEDs 6. Advanced Directives: Full Code 01/12/18 18:38
[2018-01-12] MEDS ORDERED: diPHENhydraMINE PO* 25 MG PO PRN (18:43)
[2018-01-13] MEDS: HYDROcodone/ACETAMIN 5-325 MG* 1 TAB PO PRN (01:18)
[2018-01-13 06:00] VITALS: BP 107/61
[2018-01-13] MEDS: Heparin VIAL(*) 5000 UNITS/ML VIAL (FIVE THOUSAND) SUBCUT SCH (06:01)
[2018-01-13] MEDS: Insulin LISPRO* 1 UNITS UNIT SUBCUT SCH (08:16)
[2018-01-13] MEDS: Ciprofloxacin TAB* 250 MG PO SCH (08:32)
[2018-01-13] MEDS: Docusate CAP* 100 MG PO SCH (08:32)
[2018-01-13] MEDS: Insulin GLARGINE(*) 1 UNITS UNIT SUBCUT SCH (08:32)
[2018-01-13] MEDS: glipiZIDE TAB* 5 MG PO SCH (08:33)
[2018-01-13] MEDS: Polyethylene Glycol 3350* 17 GM PACKET PO SCH (08:33)
--- NOTE | 2018-01-13 10:55 | PN ---
Progress Note Date of Service: 01/13/18 Note: KIMANI ODEN was visited. Therapy notes read and reviewed. Stable and ready for discharge. She will resume her diabetic medications Current Medications: Active Medications Generic Name Dose Route Start Last Admin Trade Name Freq PRN Reason Stop Dose Admin Acetaminophen 650 mg 01/10/18 13:53 Tylenol Tab* PO Q6H PRN FEVER/PAIN Hydrocodone Bitart/Acetaminophen 2 tab 01/10/18 14:05 01/13/18 01:18 [place] 5-325 Tab* PO 2 tab Q4H PRN Administration PAIN - SEVERE Hydrocodone Bitart/Acetaminophen 1 tab 01/10/18 14:06 01/11/18 13:10 [place] 5-325 Tab* PO 1 tab Q4H PRN Administration PAIN - MODERATE TO SEVERE Atorvastatin Calcium 20 mg 01/10/18 17:00 01/12/18 17:22 Lipitor* PO 20 mg 1700 SHERYL Administration Ciprofloxacin 250 mg 01/11/18 21:00 01/13/18 08:32 Cipro Tab* PO 250 mg Q12HR SHERYL Administration Dextrose 12.5 gm 01/10/18 14:03 D50w Syringe 50 Ml* IV PUSH .FOR FS < 60 - SS PRN FS < 60 Diphenhydramine HCl 25 mg 01/12/18 18:43 Benadryl Po* PO Q6H PRN ITCHING Docusate Sodium 100 mg 01/10/18 21:00 01/13/18 08:32 Colace Cap* PO 100 mg BID SHERYL Administration Glipizide 2.5 mg 01/12/18 17:00 01/13/18 08:33 Glucotrol Tab* PO 2.5 mg 0800,1700 SHERYL Administration Heparin Sodium (Porcine) 5,000 units 01/10/18 14:00 01/13/18 06:01 Heparin Vial(*) SUBCUT 5,000 units Q8HR SHERYL Administration Insulin Glargine 20 units 01/11/18 09:00 01/13/18 08:32 Lantus(*) SUBCUT 20 units Q24H SHERYL Administration Insulin Human Lispro 0 - 15 units 01/10/18 16:30 01/13/18 08:16 Humalog* SUBCUT Not Given ACHS SHERYL Protocol Magnesium Hydroxide 30 ml 01/10/18 13:53 Milk Of Magnesia Liq* PO Q6H PRN CONSTIPATION Polyethylene Glycol/Electrolytes 17 gm 01/11/18 09:00 01/13/18 08:33 Miralax* PO Not Given DAILY SHERYL Senna 2 tab 01/10/18 13:53 Senokot Tab* PO BEDTIME PRN CONSTIPATION Tramadol HCl 50 mg 01/10/18 14:05 01/11/18 23:35 Ultram* PO 50 mg Q6H PRN Administration PAIN - MODERATE Vital Signs: Vital Signs Temp Pulse Resp BP Pulse Ox 97.5 F 58 18 107/61 98 01/13/18 05:59 01/13/18 05:59 01/13/18 05:59 01/13/18 05:59 01/13/18 05:59 Lab Results: Laboratory Results - last 24 hr 01/12/18 01/12/18 01/12/18 12:09 16:34 20:51 POC Glucose (mg/dL) 234 H 108 H 212 H 01/13/18 07:46 POC Glucose (mg/dL) 113 H Exam: GENERAL: alert, in no distress LUNGS: clear HEART: reg rhythm ABDOMEN: soft, +BS BACK: wound c/d/i EXTREMITIES: decreased tone LLE with atrophy in left leg below the knee NEUROLOGIC: Left leg DF 0/5, PF 2/5, quads and HS 4/5, Hip flexor 4/5 Assessment/Plan: 1. L1 Burst fracture with retropulsion and myelopathy seen on MRI, left footdrop : S/P Lumbar fusion. PT/OT. Left AFO. TLSO When OOB 2. History of CVA: baby ASA 3. DM: Lantus Insulin/SSI 4. UTI with ESBL E. Coli: D/C Ceftriaxone. Cipro 250 BID, day 3/5 5. DVT Prophylaxis: TEDs 6. Advanced Directives: Full Code 01/13/18 10:55
--- NOTE | 2018-01-16 04:28 | DS ---
DISCHARGE SUMMARY: DATE OF ADMISSION: 01/10/18 DATE OF DISCHARGE: 01/13/18 DISCHARGE DIAGNOSES: 1. 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 2. Status post thoracolumbar fusion. 3. Left foot drop. 4. Urinary tract infection with ESBL E. coli. 5. Diabetes mellitus. 6. History of late effects of cerebrovascular accident. 7. History of acute promyelocytic leukemia, now on remission. HISTORY OF ILLNESS AND HOSPITAL COURSE: For complete history of the events leading up to her rehab stay, please see the history and physical dictated by me on 01/10/18. While on the rehab unit, the patient's micro from her urinary tract infection grew out ESBL E.coli. Her antibiotics were changed from ceftriaxone to Cipro. Her wound looked clean and dry and was healing well. Her diabetes was handled with Lantus insulin as well as sliding scale. She was restarted on her Glucotrol. Otherwise, she was medically stable. The patient was seen by both Physical Therapy and Occupational Therapy and made good gains with both disciplines. With Physical Therapy at the time of admission, the patient required min assist for transfers, min assist for ambulating 55 feet. With Occupational Therapy, she was min assist for toilet transfers. She was min assist for upper body dressing, min assist for lower body dressing. By the time of discharge, she was independent in all activities. She was discharged home on 01/13/18. DISCHARGE DIET: Consistent carbohydrate. DISCHARGE MEDICATIONS: 1. Cipro 250 mg every 12 hours. 2. [place] 5/325 one tablet every 4 hours as needed. 3. Lisinopril 5 mg daily. 4. Lipitor 10 mg daily. 5. Glipizide 5 mg twice daily. 6. Insulin detemir/Levemir 68 units at bedtime. 7. Insulin Levemir 80 units subcutaneously every morning. SERVICES AFTER DISCHARGE: The patient will have outpatient therapy if needed. Follow up with Dr. Wang in 1 to 2 weeks. She will also follow up with Jackie Connelly from Physical Therapy on 01/23/18. TIME SPENT: The time for this discharge was approximately 55 minutes. Greater than half of that was spent with the patient and her son discussing post rehab therapies, bracing, and medications. [id number]/[facility] #: [id number] ELICIA
== END 2018-01-13 11:00 | disposition home or self-care (01) | DRG 860 ==
LOC: PMRU 13:46
PROVIDERS: ADMIT Physical Medicine & Rehabilitation; ATTEND Physical Medicine & Rehabilitation
PROC: F07Z5ZZ Bed Mobility Treatment (ICD-10-PCS; principal; 2018-01-10)
PROC: F07Z9ZZ Gait Training/Functional Ambulation Treatment (ICD-10-PCS; 2018-01-10)
PROC: F07Z8ZZ Transfer Training Treatment (ICD-10-PCS; 2018-01-10)
PROC: F08Z0ZZ Bathing/Showering Techniques Treatment (ICD-10-PCS; 2018-01-10)
PROC: F08Z1ZZ Dressing Techniques Treatment (ICD-10-PCS; 2018-01-10)
PROC: F08Z3ZZ Feeding/Eating Treatment (ICD-10-PCS; 2018-01-10)
DX: S32.018D Other fracture of first lumbar vertebra, subsequent encounter for fracture with routine healing (principal); N39.0 Urinary tract infection, site not specified; C94.81 Other specified leukemias, in remission; I69.354 Hemiplegia and hemiparesis following cerebral infarction affecting left non-dominant side; W20.8XXD Other cause of strike by thrown, projected or falling object, subsequent encounter; Z47.89 Encounter for other orthopedic aftercare; M21.372 Foot drop, left foot; B96.20 Unspecified Escherichia coli [E. coli] as the cause of diseases classified elsewhere; E11.9 Type 2 diabetes mellitus without complications; I10 Essential (primary) hypertension; E78.5 Hyperlipidemia, unspecified; Z79.4 Long term (current) use of insulin; Z79.899 Other long term (current) drug therapy; L27.1 Localized skin eruption due to drugs and medicaments taken internally; T44.7X5D Adverse effect of beta-adrenoreceptor antagonists, subsequent encounter
CPT/HCPCS: 36415; 80053; 85025; A9270-GY; J0696; J1644